=== PATIENT | female | born 1935 | race Caucasian/White ===

== ENCOUNTER → 2017-08-19 10:01 | Outpatient (CLI) | payer MEDICARE, SELFPAY ==
[2017-08-19 12:09] LABS: AST(SGOT) 23 U/L (15-37); Alanine Aminotransfer ALT/SGPT 25 U/L (13-56); Albumin, Serum 3.9 g/dL (3.2-5.0); Alkaline Phosphatase 80 U/L (45-117); Bilirubin, Direct 0.14 mg/dL (0.00-0.30); Cholesterol 132 mg/dL (200); Globulin 3.3 g/dL (2.2-4.2); High Density Lipoprotein 49 mg/dL; Protein, Total 7.2 g/dL (6.4-8.2); Thyroid Stim Hormone (TSH) 3.43 uIU/mL (0.358-3.74); Triglycerides 81 mg/dL; Very Low Density Lipoprotein 16 mg/dL (5-40)
== END ==
PROVIDERS: Family Provider Internal Medicine; PCP Internal Medicine; Visit Provider Internal Medicine Cardiovascular Disease
DX: E78.00 Pure hypercholesterolemia, unspecified (principal); E03.9 Hypothyroidism, unspecified
CPT/HCPCS: 36415; 80061; 80076; 84443

== ENCOUNTER 2017-12-15 18:39 | Emergency (ER) | payer MEDICARE, SELFPAY ==
[2017-12-15 18:42] VITALS: BP 151/102; PULSE 87; RESP 18; TEMP 37.1; O2SAT 95; BMI 29.7
[2017-12-15] MEDS: Oxymetazoline 0.05% 1 SPRAY SPRAY.BTL 2 SPRAY NASAL (19:30)
[2017-12-15 19:42] LABS: Hematocrit 39.8 % (37-47); Hemoglobin 12.8 g/dl (12.0-15.0); Mean Corp Hgb Conc 32.2 g/gl (32-36); Mean Corpuscular Hgb 31.5 pg (27.0-32.0); Mean Platelet Vol. 10.8 fl (6.2-12.0); Platelet Count 221 K/mm3 (150-450); RBC Distribution Width CV 13.3 % (11.6-14.6); RBC Distribution Width SD 47.9 fl (35.1-43.9); Red Blood Count 4.06 M/mm3 (4.2-5.4); White Blood Count 4.5 K/mm3 (4.4-11.0)
[2017-12-15 19:44] LABS: Scan Indicated on CBC? Y/N NO
[2017-12-15 19:49] LABS: International Normalized Ratio 2.6; Prothrombin Time (Protime)PT. 28.3 SECONDS (11.7-14.9)
[2017-12-15 20:47] VITALS: BP 164/69; PULSE 69; RESP 18; O2SAT 95
--- NOTE | 2017-12-15 22:11 | ED.DCSUM_ITS ---
- ER Visit Summary Date of Service: 12/15/17 Chief Complaint: Right sided nosebleed History of Present Illness: The patient is a 82 F patient had sudden onset of right-sided nosebleed about 1750 this evening. She is on warfarin. Denies any other bleeding. Says she gets these from time to time but has not had one recently. Denies any nasal trauma. Physical Examination: Well-appearing older female. Bleeding from her right naris. Dried blood on the left. Blood in the posterior pharynx. No significant clots. Appears to be an obvious anterior source. Neck nontender. Lungs are clear. Heart regular rate and rhythm. Abdomen soft nontender. Moving all 4 extremities. Neurologically awake and alert. Test Results: PT/INR 22.6. CBC normal. Normal platelets and H&H. Emergency Department Course and Treatment: Patient's clear the clots from her nose by blowing. There are minimal. Multiple Zachary-Synephrine Afrin soaked cotton balls were placed in both nares. When the bleeding slowed. I placed an anterior nasal tampon coated with bacitracin antibiotic ointment in the right side of her nose. Currently she has had no further bleeding. She will be ambulated. As long she has no further bleeding to be dressed she will be discharged to home. Treatment Plan: Nasal pack to be pulled out in 3 days. Amoxicillin 3 times daily. Follow-up with ENT on Monday. Disposition: Discharge Impression: Acute right anterior epistaxis Anticoagulated on Coumadin with an INR 2.6 Anterior nasal pack by ER physician This note was generated with [employer] dictation software. It may contain incorrect words, spelling, and punctuation that were not noted in review of the chart prior to signing ED Disposition - Plan for ED Patient: Chief Complaint: Nosebleed Referrals: Ugo Lauren MD [Primary Care Provider] -
--- NOTE | 2017-12-15 22:11 | ED.DEP ---
ED Disposition - Plan for ED Patient: Disposition: Home or Assisted Living Chief Complaint: Nosebleed Instructions: Nosebleed Prescriptions: Amoxicillin 250 mg PO TID #9 cap Referrals: Kobe Reyes MD [STAFF PHYSICIAN] - 3-5 Days Additional Instructions: Slowly and gently pull the packing out on Monday or even better go to Dr. Kobe Conteh's office of the ear nose and throat have them remove it on Monday and make an address any further bleeding as needed. Amoxicillin 1 pill 3 times a day till gone. If rebleeds and unable to stop return to the ER.
[2017-12-15 22:17] VITALS: BP 198/95; PULSE 72; RESP 18; O2SAT 95
== END 2017-12-15 22:31 | disposition home or self-care (01) ==
PROVIDERS: Emergency Provider Emergency Medicine; Family Provider Internal Medicine; PCP Internal Medicine
DX: R04.0 Epistaxis (principal); Z79.01 Long term (current) use of anticoagulants; I10 Essential (primary) hypertension; I48.91 Unspecified atrial fibrillation; Z86.73 Personal history of transient ischemic attack (TIA), and cerebral infarction without residual deficits; Z87.19 Personal history of other diseases of the digestive system; Z79.899 Other long term (current) drug therapy
CPT/HCPCS: 30901; 85027; 85610; 99285; A4216

== ENCOUNTER 2018-01-13 00:03 | Emergency (ER) | payer MEDICARE, SELFPAY ==
[2018-01-13 00:04] VITALS: BP 156/86; PULSE 70; RESP 16; TEMP 36.5; O2SAT 96; BMI 33.9
[2018-01-13 00:52] LABS: Absolute Lymphocyte Count 1.19 X10^3/ul (0.83-4.51); Absolute Neutrophil Count 4.6 X10^3/uL (2.0-7.7); Basophil# 0.03 X10^3/uL; Basophil% 0.5 % (0-1); Eosinophil# 0.16 X10^3/uL; Eosinophils% 2.5 % (0-5); Hematocrit 34.9 % (37-47); Hemoglobin 10.9 g/dl (12.0-15.0); Lymphocyte # 1.19 X10^3/ul (4.0); Lymphocyte % 18.8 % (19-41); Mean Corp Hgb Conc 31.2 g/gl (32-36); Mean Corpuscular Hgb 31.1 pg (27.0-32.0); Mean Corpuscular Volume 99.4 fL (81-99); Mean Platelet Vol. 10.6 fl (6.2-12.0); Monocyte# 0.36 X10^3/uL; Monocyte% 5.7 % (0-10); Neutrophil # 4.58 X10^3/uL (2.7-7.7); Neutrophil % 72.5 % (47-70); Platelet Count 235 K/mm3 (150-450); RBC Distribution Width SD 47.2 fl (35.1-43.9); Red Blood Count 3.51 M/mm3 (4.2-5.4); White Blood Count 6.3 K/mm3 (4.4-11.0)
[2018-01-13 00:53] LABS: POSITIVE COUNT NO; POSITIVE DIFFERENTIAL NO; POSITIVE MORPHOLOGY NO
[2018-01-13 00:56] LABS: International Normalized Ratio 2.5
[2018-01-13] MEDS: Oxymetazoline 0.05% 1 SPRAY SPRAY.BTL NASAL (00:58)
--- NOTE | 2018-01-13 02:10 | ED.VISSUMM ---
- ER Visit Summary Date of Service: 01/13/18 Chief Complaint: [nose bleed] History of Present Illness: The patient is a 82 F [that presents with spontaneous nosebleed from her right nares. She takes Coumadin for history of atrial fibrillation and has had nosebleeds in the past. No trauma. No difficulty breathing. She has no other complaints.] Physical Examination: [General: The patient appears well and in no apparent distress. Patient is resting comfortably on cart. Skin: Warm, dry, no pallor noted. No rash. Head: Normocephalic, atraumatic Neck: Supple, nontender. ENT: Moist mucus membranes, pharynx within normal limits - old blood, no active bleeding. Airway patent. Blood in R nares, L nares clear. Cardiovascular: Regular Rate and Rhythm, no gallups or rubs Respiratory: Patient is in no distress, no accessory muscle use, lungs are clear to auscultation, no wheezing, rales or rhonchi Musculoskeletal: normal ROM, no deformity, no tenderness, no swelling. 2+ radial and DP pulses symmetric. GI: No tenderness to palpation, no masses appreciated. No rebound, guarding, or rigidity noted. Neurological: A&O, normal strength and sensation. GCS 15. Psychiatric: Cooperative] Test Results: [INR 2.5. Hemoglobin 10.9.] Emergency Department Course and Treatment: [Clots were cleared from the right naris. Afrin soaked cotton ball was placed in the right naris with pressure held. Patient was observed. Packing was removed a short time later and the bleeding did again start. Nasal packing placement was discussed and patient consents for this procedure. 5.5 cm anterior rhino rocket placed in the right naris without difficulty. Patient was again observed and there is no active bleeding. No blood in the posterior pharynx. Patient appears in no respiratory distress. Patient will follow up with her ENT physician first thing Monday and she will be placed on a 3 day course of amoxicillin. She was instructed to return with any new or worsening symptoms. Patient and family understand and are agreeable with this plan of care. Patient was discharged home in stable condition.] Treatment Plan: [see above] Disposition: [Discharge home, stable and improved] Impression: [Epistaxis, nasal packing placed by ED physician] This note was generated with [employer] software. It may contain incorrect words, spelling, and punctuation that were not noted in review of the chart prior to signing ED Disposition - Plan for ED Patient: Disposition: Home or Assisted Living Chief Complaint: Nosebleed Instructions: Nosebleed Prescriptions: Amoxicillin 500 mg PO BID #6 tab Referrals: Kobe Reyes MD [STAFF PHYSICIAN] -
[2018-01-13 02:21] VITALS: BP 136/76; PULSE 78; RESP 16; O2SAT 98
== END 2018-01-13 02:22 | disposition home or self-care (01) ==
PROVIDERS: Emergency Provider Emergency Medicine; Family Provider Internal Medicine; PCP Internal Medicine
DX: R04.0 Epistaxis (principal); I48.91 Unspecified atrial fibrillation; Z79.01 Long term (current) use of anticoagulants
CPT/HCPCS: 30901; 85025; 85610; 99282

== ENCOUNTER → 2018-02-23 12:59 | Outpatient (CLI) | payer MEDICARE, SELFPAY ==
--- NOTE | 2018-02-23 13:01 | ECHOD_ITS ---
Reason For Study: ATRIAL FIB-FLUTTER Procedure This was a 2D Doppler, Color Flow transthoracic echocardiogram. Exam performed in department. Left Ventricle Normal LV size. Mild concentric left ventricular hypertrophy. Left ventricular systolic function is normal. The estimated ejection fraction is 60 %. Unable to assess diastolic dysfunction due to arrhythmia. No regional wall motion abnormalities noted. Right Ventricle Normal RV size. Normal systolic function. Atria The left atrium is severely enlarged. The right atrium is moderately enlarged. Mitral Valve Normal mitral valve. Trivial eccentric mitral valve insufficiency. Tricuspid Valve Normal tricuspid valve. Moderate (2+) tricuspid valve insufficiency. Pulmonary artery systolic pressure is 47 mmHg. Aortic Valve Normal aortic valve. Trisinus/trileaflet aortic valve. Pulmonic Valve Normal pulmonic valve. Mild (1+) pulmonic valve insufficiency. Great Vessels Normal aortic root. The pulmonary artery is normal size. Normal inferior vena cava. Pericardium/Pleural No pericardial effusion. MMode/2D Measurements & Calculations LVIDd: 4.6 cm IVSd: 1.2 cm Ao root diam: 3.3 cm LVIDs: 3.0 cm LVPWd: 1.3 cm LA dimension: 5.4 cm RVDd: 3.7 cm FS: 35.2 % LAV(MOD-bp): 192.7 ml LVAd ap4: 22.0 cm2 SV(MOD-sp4): 40.9 ml LAV(MOD-bp) Indexed: 98.5 ml/m2 EDV(MOD-sp4): 69.9 ml LAV(MOD-sp2): 186.9 ml EDV(sp4-el): 71.2 ml LAV(MOD-sp4): 195.5 ml LVAs ap4: 13.2 cm2 ESV(MOD-sp4): 29.0 ml ESV(sp4-el): 29.1 ml EF(MOD-sp4): 58.5 % EF(sp4-el): 59.2 % SV(sp4-el): 42.1 ml LA A4 area: 46.2 cm2 RA A4 area: 39.6 cm2 Doppler Measurements & Calculations MV E max yamileth: 138.9 cm/sec Ao V2 max: 105.7 cm/sec LV V1 max: 77.5 cm/sec Ao max P.5 mmHg LV V1 max P.4 mmHg PA V2 max: 85.2 cm/sec TR max yamileth: 326.4 cm/sec TR max P.6 mmHg Interpretation Summary Normal LV size. Mild concentric left ventricular hypertrophy. Left ventricular systolic function is normal. The estimated ejection fraction is 60 %. Unable to assess diastolic dysfunction due to arrhythmia. The left atrium is severely enlarged. The right atrium is moderately enlarged. Ordering Physician: Gideon Chatman Referring Physician: BUBBA VILLANUEVA Performed By: Cheryl Storey RDCS
== END ==
PROVIDERS: Family Provider Internal Medicine; PCP Internal Medicine; Referring Provider Internal Medicine Cardiovascular Disease; Visit Provider Internal Medicine Cardiovascular Disease
DX: I48.91 Unspecified atrial fibrillation (principal); I48.92 Unspecified atrial flutter; I51.7 Cardiomegaly
CPT/HCPCS: 93306

== ENCOUNTER → 2018-09-06 10:19 | Outpatient (CLI) | payer MEDICARE, SELFPAY ==
[2018-08-31 13:45] VITALS: BMI 29.9
[2018-09-06 10:55] LABS: Absolute Lymphocyte Count 0.84 X10^3/ul (0.83-4.51); Absolute Neutrophil Count 2.4 X10^3/uL (2.0-7.7); Basophil# 0.02 X10^3/uL; Basophil% 0.5 % (0-1); Eosinophil# 0.23 X10^3/uL; Hematocrit 34.4 % (37-47); Hemoglobin 10.3 g/dl (12.0-15.0); Lymphocyte # 0.84 X10^3/ul (4.0); Lymphocyte % 21.8 % (19-41); Mean Corp Hgb Conc 29.9 g/gl (32-36); Mean Corpuscular Volume 86.9 fL (81-99); Mean Platelet Vol. 10.2 fl (6.2-12.0); Monocyte# 0.33 X10^3/uL; Monocyte% 8.5 % (0-10); Neutrophil # 2.44 X10^3/uL (2.7-7.7); Neutrophil % 63.2 % (47-70); Platelet Count 300 K/mm3 (150-450); RBC Distribution Width CV 16.8 % (11.6-14.6); RBC Distribution Width SD 53.5 fl (35.1-43.9); Red Blood Count 3.96 M/mm3 (4.2-5.4); White Blood Count 3.9 K/mm3 (4.4-11.0)
[2018-09-06 11:00] LABS: POSITIVE COUNT NO; POSITIVE DIFFERENTIAL NO; POSITIVE MORPHOLOGY NO
[2018-09-06 11:22] LABS: AST(SGOT) 23 U/L (15-37); Alanine Aminotransfer ALT/SGPT 20 U/L (13-56); Albumin, Serum 3.8 g/dL (3.2-5.0); Alkaline Phosphatase 82 U/L (45-117); Globulin 3.4 g/dL (2.2-4.2); Protein, Total 7.2 g/dL (6.4-8.2)
[2018-09-06 11:23] LABS: Bilirubin, Direct 0.11 mg/dL (0.00-0.30); Cholesterol 130 mg/dL (200); High Density Lipoprotein 43 mg/dL; Triglycerides 109 mg/dL; Very Low Density Lipoprotein 22 mg/dL (5-40)
[2018-09-06 11:29] LABS: Anion Gap 8 (5-15); BUN 22 mg/dL (7-18); BUN/Creat Ratio 22.2 RATIO (10-20); Calcium,Total 9.5 mg/dL (8.5-10.1); Chloride 107 mmol/L (98-107); Creatinine, Serum 0.99 mg/dL (0.55-1.02); EST Glomerular Filtration Rate 57 mL/min (>60); Est Glom Filt Rate - Afr Amer 69 mL/min (>60); Glucose 88 mg/dL (74-106); Potassium 4.3 mmol/L (3.5-5.1); Sodium Level 140 mmol/L (136-145); T4 Free Direct 1.23 ng/dL (0.76-1.46); Thyroid Stim Hormone (TSH) 2.39 uIU/mL (0.358-3.74)
== END ==
PROVIDERS: Internal Medicine Cardiovascular Disease; Family Provider Internal Medicine; PCP Internal Medicine; Referring Provider Internal Medicine; Visit Provider Internal Medicine
DX: I10 Essential (primary) hypertension (principal); I48.91 Unspecified atrial fibrillation; E78.5 Hyperlipidemia, unspecified; E03.9 Hypothyroidism, unspecified; Z79.899 Other long term (current) drug therapy
CPT/HCPCS: 36415; 80048; 80061; 80076; 84439; 84443; 85025

== ENCOUNTER 2019-07-19 15:35 | Emergency (ER) | payer MEDICARE, SELFPAY ==
[2019-06-21 13:52] VITALS: BMI 29.6
[2019-07-19] VITALS (8 sets, daily range): BP systolic 152–194; BP diastolic 75–103; PULSE 70–81; RESP 13–21; TEMP 36.1; O2SAT 95–97; BMI 30.9
--- NOTE | 2019-07-19 15:48 | CT_ITS ---
We are attempting to reach an attending provider to discuss findings. An addendum with communication details will be sent when the communication is complete. STUDY: CT BRAIN WITHOUT CONTRAST REASON FOR EXAM: Female, 84 years old. FALL 1 WEEK AGO, ON THINNERS RADIATION DOSAGE (If Supplied By Facility): CTDIvol = ( 44.99 ) mGy, DLP = ( 812.98 ) mGycm TECHNIQUE: Transaxial CT imaging of the brain was performed without administration of intravenous contrast material. Individualized dose optimization techniques were used for this CT. COMPARISON: No relevant priors. FINDINGS: There is a hematoma adjacent to the left maxillary sinus. No evidence for acute fracture.. 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 There is a large predominantly subacute/acute subdural hematoma approximately 2.2 cm in width with diffuse effacement of cortical sulci in the left cerebral hemisphere and mass effect as well as midline displacement of the left lateral ventricle with approximately 1.4 cm displacement. Normal visualized paranasal sinuses. CT/Brain/Head without Contrast IMPRESSION: Large subacute/acute subdural hematoma in the left cerebral hemisphere with approximately 1.4 cm midline shift displacement of the left lateral ventricle Electronically Signed: Rigo Jernigan MD at 17:18 EST , Service support ,
--- NOTE | 2019-07-19 15:50 | EKG12_ITS ---
Test Reason : FALL Blood Pressure : / mmHG Vent. Rate : 075 BPM Atrial Rate : 120 BPM P-R Int : 000 ms QRS Dur : 090 ms QT Int : 420 ms P-R-T Axes : 000 -46 091 degrees QTc Int : 469 ms Atrial fibrillation Left axis deviation Nonspecific ST and T wave abnormality Abnormal ECG Confirmed by ADRI HUNTER, NELIDA ([id number]), editorial cartoonist SUDHAKAR URBANO ([id number]) on 07/22/2019 2:08:02 PM Referred By: MATTIE PILLAI Confirmed By:RAMONA RUSH MD
[2019-07-19 16:00] LABS: Absolute Lymphocyte Count 0.95 X10^3/uL (0.83-4.51); Absolute Neutrophil Count 5.1 X10^3/uL (2.0-7.7); Basophil# 0.05 X10^3/uL; Basophil% 0.7 % (0-1); Eosinophil# 0.11 X10^3/uL; Eosinophils% 1.6 % (0-5); Hematocrit 38.5 % (37-47); Hemoglobin 12.4 g/dL (12.0-15.0); Lymphocyte # 0.95 X10^3/ul (4.0); Lymphocyte % 14.1 % (19-41); Mean Corp Hgb Conc 32.2 g/dL (32-36); Mean Corpuscular Hgb 30.5 pg (27.0-32.0); Mean Corpuscular Volume 94.6 fL (81-99); Mean Platelet Vol. 10.7 fl (6.2-12.0); Monocyte# 0.51 X10^3/uL; Monocyte% 7.6 % (0-10); NRBC Flagged by Analyzer 0 % (0-5); Neutrophil # 5.06 X10^3/uL (2.7-7.7); Neutrophil % 75.4 % (47-70); Platelet Count 284 K/mm3 (150-450); RBC Distribution Width CV 14.3 % (11.6-14.6); RBC Distribution Width SD 49.4 fl (35.1-43.9); Red Blood Count 4.07 M/mm3 (4.2-5.4); White Blood Count 6.7 K/mm3 (4.4-11.0)
[2019-07-19 16:17] LABS: International Normalized Ratio 1.6; Prothrombin Time (Protime)PT. 18.8 SECONDS (11.7-14.9)
[2019-07-19 16:18] LABS: Partial Thromboplast Time 29.9 Seconds (24.1-36.2)
[2019-07-19] MEDS: 0.9% Normal Saline 1,000 ML 150 ML IV (16:32)
[2019-07-19 16:35] LABS: Lactic Acid 1.3 mmol/L (0.4-1.9)
[2019-07-19 16:39] LABS: ALB/GLOB Ratio 1.1 RATIO (0.9-2.4); AST(SGOT) 16 U/L (15-37); Alanine Aminotransfer ALT/SGPT 15 U/L (13-56); Albumin, Serum 3.7 g/dL (3.2-5.0); Alkaline Phosphatase 92 U/L (45-117); Anion Gap 5 (5-15); BUN 15 mg/dL (7-18); BUN/Creat Ratio 13.3 RATIO (10-20); Calcium,Total 10.2 mg/dL (8.5-10.1); Chloride 106 mmol/L (98-107); Creatinine, Serum 1.13 mg/dL (0.55-1.02); EST Glomerular Filtration Rate 49 mL/min (>60); Est Glom Filt Rate - Afr Amer 59 mL/min (>60); Estimated Creatinine Clearance 38.05 ml/min; Globulin 3.5 g/dL (2.2-4.2); Glucose 100 mg/dL (74-106); Potassium 4.2 mmol/L (3.5-5.1); Protein, Total 7.2 g/dL (6.4-8.2); Sodium Level 138 mmol/L (136-145)
--- NOTE | 2019-07-19 16:45 | RAD_ITS ---
STUDY: X-RAY CHEST REASON FOR EXAM: Female, 84 years old. mental status change, also recent fall TECHNIQUE: PA and lateral COMPARISON: None. FINDINGS: There is very mild prominence of interstitial markings in the lower lobes.. There is no demonstrated pleural abnormality. Heart is enlarged and slightly globular in configuration. Possibility of pericardial effusion not excluded. Normal mediastinum and ebenezer. Normal visualized pulmonary arteries. Tortuous mildly calcified aortic arch and descending thoracic aorta. Normal visualized thoracic spine. Normal visualized ribs, clavicles, and shoulders. There is no demonstrated abnormality of the visualized soft tissue structures of the upper abdomen. RAD/Chest PA and Lateral IMPRESSION: ASHD. Cannot definitively exclude pericardial effusion Mild interstitial thickening in the lower lobes Electronically Signed: Rigo Jernigan MD at 17:27 EST , Service support ,
[2019-07-19 16:48] LABS: Bacteria 0 SEEN /hpf (None Seen); Mucous, Urine 0 SEEN /hpf (<or=2+); White Blood Cells 0 SEEN /hpf (0-5)
[2019-07-19 17:00] LABS: Color, Urine Yellow (Yellow); Glucose, Dipstick Normal (Normal); Ketone-Dipstick 5 mg/dl (Negative); Leukocyte Esterase-Dipstick Negative /ul (Negative); Nitrite-Dipstick Negative (Negative); Occult Blood-Urine 250 /ul (Negative); Protein-Dipstick 30 mg/dl (Negative); Urine Bilirubin Dipstick Negative (Negative); Urine Clarity Clear (Clear); Urine Urobilinogen Normal (Normal); Urine pH 6.5 (5.0 - 8.0)
--- NOTE | 2019-07-19 17:18 | NURSING ---
Per physician, d/t duration of condition, Q15 VS and NIH not appropriate at this time
[2019-07-19 17:21] LABS: Red Blood Cells-Urine 5-10 SEEN /hpf (0-5); Squamous Epithelial Cells - UA 0-5 SEEN /hpf (5-10)
--- NOTE | 2019-07-19 17:39 | ED.DCSUM_ITS ---
- ER Visit Summary Date of Service: 07/19/19 Chief Complaint: Confusion History of Present Illness: The patient is a [address] Lauren. She is on Coumadin for atrial fibrillation. She lives at home with family. They report that she fell on July 04. She was doing fine until 2 days ago when she became confused. The patient denies any complaints. However, at this time she is oriented x2. Physical Examination: Vitals: Stable. Afebrile. General: Well-nourished and well-developed. Head: Normocephalic old appearing contusion to the left maxilla. Neck: Supple, no lymphadenopathy. No JVD. Nontender. Cardiovascular: Regular rate and rhythm. No murmurs. Respiratory: No respiratory distress. Clear to auscultation bilaterally. Abdominal: Soft, nontender, nondistended, normal bowel sounds. No guarding, rebound, or peritoneal signs. Back: Nontender. Extremities: Nontender, no edema. Contusion to the proximal left humerus. No pain with range of motion. Skin: Normal color, no rash. Neurologic: Alert and oriented ?2. Cranial nerves II through XII are intact. Normal strength and sensation. Obvious expressive aphasia. Psych: Normal affect. Test Results: INR is 1.6 the PTT is 29.9. Chem-7 shows a creatinine 1.13 and calcium of 10.2. CBC shows segmented for 74 lymphocytes 14. UA is negative. Troponin is negative. Clinical Impression(s) from Imaging Studies Brain CT 07/19/19 15:48 IMPRESSION: Large subacute/acute subdural hematoma in the left cerebral hemisphere with approximately 1.4 cm midline shift displacement of the left lateral ventricle Electronically Signed: Rigo Jernigan MD at 17:18 EST , Service support , ADDENDUM: 07/19/19 4448 IMPRESSION: Large subacute/acute subdural hematoma in the left cerebral hemisphere with approximately 1.4 cm midline shift displacement of the left lateral ventricle N.B. : The above information has been verbally conveyed by Rigo Jernigan MD to Jesus Callejas MD, on 07/19/2019 17:21:29 (ET). Electronically Signed: Rigo Jernigan MD at 17:18 EST , Service support , Chest X-Ray 07/19/19 16:45 IMPRESSION: ASHD. Cannot definitively exclude pericardial effusion Mild interstitial thickening in the lower lobes Electronically Signed: Rigo Jernigan MD at 17:27 EST , Service support , Emergency Department Course and Treatment: Patient was given a dose of vitamin K IV. Her INR is 1.6 which is below the threshold for giving Kcentra by protocol at this hospital. Her systolic blood pressure has been in the 150s to 160s. This was not treated as I feel that she needs this to be able to perfuse when she clearly has increased intercranial pressure. She has remained stable and her neurologic exam is unchanged while here. Treatment Plan: The patient was discussed with Dr. Cruz at [facility]. We discussed her blood pressure and her INR. She will be transferred there for further evaluation and treatment. Disposition: Transferred in serious condition. Impression: 1. Subdural hemorrhage on left. 2. Coumadin coagulopathy. 3. Atrial fibrillation. 4. Critical care time 33 minutes. 5. Cardiomegaly. This note was generated with [employer] dictation software. It may contain incorrect words, spelling, and punctuation that were not noted in review of the chart prior to signing ED Disposition - Plan for ED Patient: Referrals: Ugo Lauren MD [Primary Care Provider] -
--- NOTE | 2019-07-19 18:41 | NURSING ---
Report called to Salud HERRING at [facility]
[2019-07-19] MEDS: Morphine 4 MG/ML Syringe IV (18:55)
== END 2019-07-19 20:15 | disposition short-term general hospital (02) ==
PROVIDERS: Emergency Provider Emergency Medicine; PCP Internal Medicine
DX: S06.5X9A Traumatic subdural hemorrhage with loss of consciousness of unspecified duration, initial encounter (principal); R79.1 Abnormal coagulation profile; I48.91 Unspecified atrial fibrillation; I11.9 Hypertensive heart disease without heart failure; S40.022A Contusion of left upper arm, initial encounter; S00.83XA Contusion of other part of head, initial encounter; W19.XXXA Unspecified fall, initial encounter; Y93.9 Activity, unspecified; Y92.9 Unspecified place or not applicable; E03.9 Hypothyroidism, unspecified; I27.20 Pulmonary hypertension, unspecified; M19.90 Unspecified osteoarthritis, unspecified site; Z86.73 Personal history of transient ischemic attack (TIA), and cerebral infarction without residual deficits; Z79.01 Long term (current) use of anticoagulants; Z79.899 Other long term (current) drug therapy
CPT/HCPCS: 70450; 71046; 80053; 81001; 83605; 84484; 85025; 85610; 85730; 87040; 87086; 93005; 96361; 96365; 96374; 96375; 99285; A4216; J3490

== ENCOUNTER 2019-08-01 14:14 | Inpatient (IN) | payer MEDICARE, SELFPAY ==
[2019-07-19 15:36] VITALS: BMI 30.9
[2019-08-01 14:27] VITALS: BMI 30.6
[2019-08-01 14:31] VITALS: BP 159/90; PULSE 102; RESP 16; TEMP 36.7; O2SAT 95
[2019-08-01 14:46] VITALS: BMI 30.6
[2019-08-01 15:39] VITALS: PULSE 102; RESP 16; O2SAT 95
--- NOTE | 2019-08-01 17:13 | PCM.NTREPORT ---
Nutrition Therapy Report - History Nutrition Services has been consulted to:: Manage enteral nutrition Current diet / nutrition support order:: regular-puree/nectar thick. NG in place for nutrition support. - Anthropometric Measurements Height:: 5 ft 7 in Weight:: 88.677 kg Body Mass Index (BMI):: 30.6 - Assessment Food / Nutrition-Related History:: Review of records from [facility]- corpak placed for nutrition support. Unclear when corpak was placed. Orders for Replete at 65mL/hour for 22 hours/day w/ 50mL flush 6x/day to provide 1430 calories, 91 g protein, and 1610mL total fluid per day. Per [facility] RD documentation, PO diet was advanced at [facility] w/ anticipation that corpak would be removed soon. It appears that res was offered mighty shakes or magic cups w/meals. Res unable to provide much information at time of assessment. Per [facility] records, wt on 07/19/19 was 96.6 kg, suggesting a 8.2% wt loss over < 2 weeks. Difficulties chewing/swallowing reported- PRODUCT SAFETY MANAGER consulted. On puree/nectar thick diet at [facility] per report. PO diet ordered currently. - Nutrition Intervention Nutrition Prescription:: 4543-7361 calories/day, 78-88 g protein/day - Food / Nutrient Delivery Interventions Summary of nutrition intervention:: Spoke w/ Res- she believes she can eat well at meals w/o continuing enteral nutrition support. Spoke w/ NEVAEH Frye- plan of care is to continue w/ NG and enteral support as needed. Will order bolus enteral feeds if pt eats less than 50% at meals. PRODUCT SAFETY MANAGER assessment pending. Nutrition support ordered as / adjusted to:: bolus feeds of 355mL Jevity 1.5 via NG after mealtimes if PO intake <50%. 50mL H2O flush before and after each bolus. Nutrition education provided?: No - MNT Monitoring Further MNT monitoring and evaluation required?: Yes MNT Follow-up in:: 7-9 days - call clinical RD at [phone] w/ questions/concerns
[2019-08-01 17:18] VITALS: BMI 30.6
--- NOTE | 2019-08-01 18:01 | NURSING ---
Addendum entered by Kristie Andrade 08/02/19 08:00: Daughter updated on situation. Daughter stating she will be discussing with her siblings about code status and will update staff. Per GAVINO Quiroga they do not want pt to be a full code but unsure which DNR status. All questions were answered. Daughter thanked this nurse several times for all of the care that has been provided to her mom. Stating she will call back in later to get an update. Dr. Vieira updated on situation and conversation with daughter. [facility]. Addendum entered by Melva Blanco 08/01/19 18:48: pt assisted via bed to xray, pt noted to be responding more. ABle to answer questions with short one word answers. daughter states that pt has history of seizures and feels that may have been one. phone call to [facility] for preauth on CT scan. Awaiting fax from them. Original Note: Nursing staff entered room and noted daughter feeding pt. Pt noted to have food rolling out of mouth and less responsive, aphasic. pt not responding to questions. pt speech was clear earlier and answering questions appropriately, was able to follow directions. Dr Vieira here and assessed pt. new orders for labs, chest & ABD xray, CT brain, Resp panel, blood cultures, & UA. Daughter states that her mom was not acting this way earlier.
--- NOTE | 2019-08-01 18:10 | RAD_ITS ---
STUDY: X-RAY - ABDOMEN/PELVIS REASON FOR EXAM: Female, 84 years old. NEW ADMIT, PT IS POST OP SUBDURAL HEMATOMA EVACUATION TECHNIQUE: Two AP supine views of the abdomen and pelvis. COMPARISON: None. FINDINGS: The heart is enlarged. Minor crowding suggested in the right lung base. Distal feeding tube projects in the post bulbar 1st-2nd portion of the duodenum. There is an unremarkable bowel gas pattern. Contrast from prior studies mixed with stool in the rectal vault. There is no demonstrated free abdominal air. The visualized liver, spleen and kidneys are grossly normal in size and morphology. There are calcified phleboliths in the pelvis. There are degenerative changes of the lower lumbar spine. RAD/Abdomen Single View IMPRESSION: 1. Feeding tube tip projects in the post bulbar 1st-2nd portion of the duodenum. 2. Nonspecific bowel gas pattern. 3. The heart is enlarged. Electronically Signed: Solis Garza MD at 18:43 EST , Service support ,
--- NOTE | 2019-08-01 18:10 | RAD_ITS ---
STUDY: X-RAY CHEST REASON FOR EXAM: Female, 84 years old. NEW TRANSFER -- HX OF SUBDURAL HEMATOMA WITH EVACUATION, PT IS BEDRIDDEN TECHNIQUE: Upright AP and lateral views of the chest on 3 films. COMPARISON: Upright AP and lateral chest x-ray July 19, 2019. FINDINGS: A feeding tube passes beneath the diaphragm, its tip outside the field of view. The lungs are incompletely expanded and there is local volume loss with crowding in the lung bases. No acute consolidation. There is no demonstrated pleural abnormality. There is stable mild cardiac enlargement. Normal mediastinum and ebenezer. Normal visualized pulmonary arteries. There is stable mild atherosclerotic calcification of the aortic arch. Normal visualized thoracic spine. Normal visualized ribs, clavicles, and shoulders. There is no demonstrated abnormality of the visualized soft tissue structures of the upper abdomen. RAD/Chest PA and Lateral IMPRESSION: 1. Stable cardiac enlargement. No CHF. 2. Suboptimal inspiratory effort with bibasilar crowding. 3. Feeding tube tip is outside the field of view. Electronically Signed: Solis Garza MD at 18:41 EST , Service support ,
[2019-08-01 18:28] LABS: Bacteria 0 SEEN /hpf (None Seen); Mucous, Urine 0 SEEN /hpf (<or=2+); Red Blood Cells-Urine 0 SEEN /hpf (0-5); White Blood Cells 0 SEEN /hpf (0-5)
[2019-08-01 18:30] LABS: Color, Urine Yellow (Yellow); Glucose, Dipstick Normal (Normal); Ketone-Dipstick Negative (Negative); Nitrite-Dipstick Negative (Negative); Occult Blood-Urine Negative /ul (Negative); Protein-Dipstick Negative (Negative); Specific Gravity, Urine 1.015 (1.002-1.030); Urine Bilirubin Dipstick Negative (Negative); Urine Clarity Clear (Clear); Urine Urobilinogen Normal (Normal)
[2019-08-01 18:31] LABS: Leukocyte Esterase-Dipstick Negative /ul (Negative)
[2019-08-01 18:40] LABS: Squamous Epithelial Cells - UA 0-5 SEEN /hpf (5-10)
[2019-08-01 18:41] LABS: Amorphous Sediment 1+
[2019-08-01 18:57] LABS: Absolute Lymphocyte Count 1.02 X10^3/uL (0.83-4.51); Absolute Neutrophil Count 4.1 X10^3/uL (2.0-7.7); Basophil# 0.06 X10^3/uL; Eosinophil# 0.34 X10^3/uL; Eosinophils% 5.6 % (0-5); Hematocrit 35.5 % (37-47); Hemoglobin 11.2 g/dL (12.0-15.0); Lymphocyte # 1.02 X10^3/ul (4.0); Lymphocyte % 16.7 % (19-41); Mean Corp Hgb Conc 31.5 g/dL (32-36); Mean Corpuscular Hgb 30.2 pg (27.0-32.0); Mean Corpuscular Volume 95.7 fL (81-99); Mean Platelet Vol. 11.4 fl (6.2-12.0); Monocyte# 0.56 X10^3/uL; Monocyte% 9.2 % (0-10); NRBC Flagged by Analyzer 0 % (0-5); Neutrophil % 67.2 % (47-70); Platelet Count 289 K/mm3 (150-450); RBC Distribution Width CV 15.4 % (11.6-14.6); RBC Distribution Width SD 53.6 fl (35.1-43.9); Red Blood Count 3.71 M/mm3 (4.2-5.4); White Blood Count 6.1 K/mm3 (4.4-11.0)
[2019-08-01 19:37] LABS: Anion Gap 4 (5-15); BUN 32 mg/dL (7-18); BUN/Creat Ratio 38.2 RATIO (10-20); Calcium,Total 9.9 mg/dL (8.5-10.1); Chloride 108 mmol/L (98-107); Creatinine, Serum 0.84 mg/dL (0.55-1.02); EST Glomerular Filtration Rate 69 mL/min (>60); Est Glom Filt Rate - Afr Amer 84 mL/min (>60); Estimated Creatinine Clearance 49.35 ml/min; Glucose 99 mg/dL (74-106); Potassium 4.4 mmol/L (3.5-5.1); Sodium Level 139 mmol/L (136-145)
--- NOTE | 2019-08-01 20:03 | NURSING ---
Addendum entered by Kristie Andrade 08/02/19 00:16: Correction fluids running at 60cc/hr. Pt awake at this time and more alert. Pt stated her name and who her daughter is. Pt able to follow simple commands of sticking tongue out, reaching over to help roll, follow finger in all directions. Pt agreeable to HS care. Able to lift Rt arm above head without problem. Slightly able to lift left arm but contracted d/t old CVA. Brace applied to left hand. Heel boots on. Rolled to Rt side. PA on. Bed in lowest position, seizure pads on, headed elevated at 30 degrees. Pt denied further needs at this time. Original Note: Dr. Vieira updated on CXR and KUB. Updated on pt not being verbal with responses. Able to nod head yes or no when asked a question. Able to follow pen light to the left but had to be redirected to follow other directions. Bp 155/67, HR 105, temp 98.7, O2 97% on RA. New order to give 1L NS bolus and then run at 75cc/hr.
[2019-08-01] MEDS: 0.9% Normal Saline 1,000 ML 999 ML IV (20:49)
[2019-08-01] MEDS: levETIRAcetam Oral Solution 500 MG/5 ML PO (21:06)
[2019-08-01] MEDS: Docusate Sodium 100 MG/10 ML UDC PO (21:06)
[2019-08-01] MEDS: Lisinopril 20 MG Tablet PO (21:07)
[2019-08-01] MEDS: Pravastatin 80 MG Tablet PO (21:08)
[2019-08-01] MEDS: Zonisamide 50 MG Capsule 100 MG PO (21:09)
[2019-08-01 21:10] VITALS: BP 155/67; PULSE 105; O2SAT 92
[2019-08-01] MEDS: Metoprolol Tartrate 100 MG Tablet PO (21:10)
[2019-08-01] MEDS: Jevity 1.5. 1,000 ML Bottle 355 ML NG (21:26)
--- NOTE | 2019-08-01 21:28 | PCM.HP.STD ---
Problem List (1) Debility Status: Acute (2) Fall Status: Acute (3) Subdural hemorrhage Status: Acute (4) Encephalopathy Status: Acute (5) Dysphagia Status: Acute (6) Left hemiparesis Status: Acute (7) Receptive aphasia Status: Chronic (8) Seizure disorder Status: Chronic (9) Atrial fibrillation Status: Chronic (10) Hypertension Status: Chronic (11) Chronic obstructive pulmonary disease Status: Chronic (12) Rheumatoid arthritis Status: Chronic (13) Bowel incontinence Status: Acute (14) Bladder incontinence Status: Acute (15) Anemia Status: Chronic (16) Atrophic vaginitis Status: Chronic (17) Overactive bladder Status: Chronic (18) CVA (cerebral vascular accident) Status: Chronic (19) Hypothyroidism Status: Chronic History of Present Illness Date of Admission: 08/01/19 Chief Complaint: Here for rehabilitation, strengthening, prior to disposition determination. The patient is a 84 year old Female with below past medical history with followin07/19/2019 Fall on ice, hit head, depressed mental status. CT head showed left frontal subdural hemorrhage. Transferred to [facility]. 07/20/2019 Left craniotomy evacuation for subdural hemorrhage. On Keppra 250MG daily for chronic seizure disorder at home. Anticoagulation held due to subdural hemorrhage. Corpak in place for tube feeding. Pureed diet with nectar thick liquids per modified barium swallow. 08/01/2019 Admit to TCU with debility, here for rehabilitation, strengthening, prior to discharge home. Resident had change in mental status after arrival, unresponsive, not responding to verbal commands, not speaking. Evaluation ordered. WBC 6.1, Hemoglobin 11.2, Hematocrit 35.5, Platelets 289. Sodium 139, Potassium 4.4, Chloride 108, Bicarb 27, BUN 32, Cr 0.89, Glucose 99. UA negative. Temperature 99.1, Respiratory panel ordered. Heart Rate 105, Respiratory rate 16, Blood pressure 155/67, Pulsox 95% on Room Air. Chest X-ray shows corpak in place, cardiomegaly, negative for pneumonia/CHF. KUB shows corpak in place, large ball of contrast and stool plug in rectum. Past Medical History Past Medical History (Chronic Problems): Chronic Problems (Last Reviewed 06/21/19 @ 14:[address] Gideon Chatman MD) Receptive aphasia (Chronic) Seizure disorder (Chronic) Atrial fibrillation (Chronic) Hypertension (Chronic) Chronic obstructive pulmonary disease (Chronic) Rheumatoid arthritis (Chronic) Anemia (Chronic) Atrophic vaginitis (Chronic) Overactive bladder (Chronic) Longstanding persistent atrial fibrillation (Chronic) Non-rheumatic tricuspid valve insufficiency (Chronic) Secondary pulmonary arterial hypertension (Chronic) Essential hypertension (Chronic) CVA (cerebral vascular accident) (Chronic 2009) Current use of exterminator termite anticoagulation (Chronic) Hypothyroidism (Chronic) Medical History: Medical History (Last Reviewed 06/21/19 @ 14:[address] Gideon Chatman MD) Longstanding persistent atrial fibrillation (Chronic) I48.11 Non-rheumatic tricuspid valve insufficiency (Chronic) I36.1 Secondary pulmonary arterial hypertension (Chronic) I27.21 Essential hypertension (Chronic) I10 CVA (cerebral vascular accident) (Chronic) Onset Date: 2008 I63.9 Hypothyroidism (Chronic) E03.9 Anemia D64.9 GI bleed K92.2 Hypothyroidism E03.9 Osteoarthritis M19.90 Allergies naproxen Adverse Reaction (Severe, Verified 06/21/19 13:53) GI BLeed ezetimibe [From Vytorin] Adverse Reaction (Intermediate, Verified 06/21/19 13:53) mylagias simvastatin [From Vytorin] Adverse Reaction (Intermediate, Verified 06/21/19 13:53) mylagias celebrex Allergy (Uncoded 06/21/19 13:53) GI Bleed Home Medications: Ambulatory Orders Medication Instructions Recorded Cholecalciferol (VIT D3) [Vitamin 1,000 unit PO DAILY 09/02/15 D] Magnesium Oxide [Mag-Ox 400] 800 mg PO DAILY 09/02/15 Levothyroxine Sodium 50 mcg PO DAILY 07/19/19 Lisinopril 20 mg PO BID 07/19/19 Oxybutynin Chloride [Oxybutynin 10 mg PO DAILY 07/19/19 Chloride ER] Pravastatin Sodium 80 mg PO QHS 07/19/19 Acetaminophen [Pain Reliever] 650 mg PO Q4H PRN PRN 08/01/19 Docusate Sodium [Docu Liquid] 100 mg PO BID 08/01/19 Metoprolol Tartrate [Lopressor 100 mg PO Q8H 08/01/19 (Beta Rosy)] Multivitamin [Daily Multiple 1 ea PO DAILY 08/01/19 Vitamin] Ondansetron HCl [Zofran] 4 mg PO Q4H PRN PRN 08/01/19 Pantoprazole Sodium [Protonix] 20 mg PO DAILY 08/01/19 Pravastatin [Pravachol] 80 mg PO QHS 08/01/19 Quetiapine Fumarate [Seroquel] 12.5 mg PO Q8H PRN PRN 08/01/19 Zonisamide [Zonegran] 100 mg PO QHS 08/01/19 levETIRAcetam oral solution 500 mg PO BID 08/01/19 [Keppra Solution] Surgical History: Surgical History (Last Reviewed 06/21/19 @ 14:[address] Gideon Chatman MD) History of bunionectomy of both great toes 2000 History of cystoscopy 2000 History of left heart catheterization Onset Date: 1998 Surgical History: - - Craniotomy, Vein Stripping, Bilateral bunionectomy. Psychiatric History: No pertinent psych hx [employer]CH[employer]IAN [employer] History: No pertinent TECH[employer] history Lives: Alone Smoking Status: Never smoker Tobacco Use: Non-smoker Alcohol: Occasional - Birthdays/Holidays. Drugs: None - *Family History Maternal Family History: Family History (Last Reviewed 06/21/19 @ 14:[address] Gideon Chatman MD) Mother Atrial fibrillation Father Abdominal aneurysm History Items: No pertinent history Paternal Family History: Family History (Last Reviewed 06/21/19 @ 14:[address] Gideon Chatman MD) Mother Atrial fibrillation Father Abdominal aneurysm History Items: No pertinent history Review of Systems Constitutional: Denies: Chills, Fever, Weight Change HEENT: Denies: Head Aches, Sinus Congestion, Sinus Drainage Cardiovascular: Denies: Chest Pain, Palpitations Respiratory: Denies: Cough, Shortness of breath at rest, Sputum production Gastrointestinal: Denies: Abdominal Pain, Nausea, Vomiting Genitourinary: Denies: Dysuria Musculoskeletal: Denies: Joint Pain, Joint Tenderness Skin: Denies: Rash, Wounds Neurological: Reports: Change in Speech, Confusion, - - Aphasic.. Denies: Focal weakness, Numbness, Tingling Psychiatric: Denies: Anxiety, Depression, Homicidal Ideations, Suicidal Ideations Hematologic/ Lymphatic: Denies: Easy Bruising, Easy Bleeding VTE Information - Inpt Only VTE Present on Admission: No VTE Mechan Device Prophylaxis: Knee High DOMINIC Hose VTE Pharm Prophylaxis ordered?: No Reason prophylaxis not ordered:: Medical Contraindication Patient Problems: Active and Suspected Problems (Last Reviewed 06/21/19 @ 14:[address] Gideon Chatman MD) Debility (Acute) Fall (Acute) Subdural hemorrhage (Acute) Encephalopathy (Acute) Dysphagia (Acute) Left hemiparesis (Acute) Bowel incontinence (Acute) Bladder incontinence (Acute) - Physical Exam Vitals/I&O's: Vital Signs Temp Pulse Resp BP Pulse Ox 98.0 F 105 H 16 155/67 H 95 08/01/19 14:31 08/01/19 21:10 08/01/19 15:39 08/01/19 21:10 08/01/19 15:39 Oxygen Delivery Method Room Air Weight: 88.677 kg Body Mass Index (BMI) 30.6 General: Alert, Oriented x3, Cooperative HEENT: Atraumatic, PERRLA, EOMI, Normocephalic, - - gwyn intact along midline scalp incision, Corpak. Neck: Supple, No JVD, Negative Carotid Bruits Lungs: Clear to auscultation, Normal air movement Cardiovascular: Regular rate, No murmurs Abdomen: Bowel Sounds Present, Soft, Non Tender Extremities: No edema, Capillary Refill Less than 3 Seconds Skin: No rashes, No breakdown Musculoskeletal: No Tenderness to Palpation of Joints or Extremities Neurological: Cranial nerves II-XII grossly intact, - - Left hemiparesis. Psych/Mental Status: Normal Affect, Appropriate Laboratory Results 08/01/19 18:00: Urine Color Yellow, Urine Clarity Clear, Urine pH 7.0, Ur Specific [place] 1.015, Urine Protein Negative, Urine Glucose (UA) Normal, Urine Ketones Negative, Urine Occult Blood Negative, Urine Nitrite Negative, Urine Bilirubin Negative, Urine Urobilinogen Normal, Ur Leukocyte Esterase Negative, Urine RBC 0 SEEN, Urine WBC 0 SEEN, Ur Squamous Epith Cells 0-5 SEEN, Amorphous Sediment 1+, Urine Bacteria 0 SEEN, Urine Mucus 0 SEEN 08/01/19 18:41: WBC 6.1, RBC 3.71 L, Hgb 11.2 L, Hct 35.5 L, MCV 95.7, MCH 30.2, MCHC 31.5 L, RDW Std Deviation 53.6 H, RDW Coeff of Dwight 15.4 H, Plt Count 289, MPV 11.4, Immature Gran % (Auto) 0.300, Neut % (Auto) 67.2, Lymph % (Auto) 16.7 L, Twiggs % (Auto) 9.2, Eos % (Auto) 5.6 H, Baso % (Auto) 1.0, Absolute Neuts (auto) 4.1, Absolute Lymphs (auto) 1.02, Nucleated RBC % 0 08/01/19 18:41: Sodium 139, Potassium 4.4, Chloride 108 H, Carbon Dioxide 27.0, Anion Gap 4 L, BUN 32 H, Creatinine 0.84, Estim Creat Clear Calc 49.35, Est GFR (MDRD) Af Amer 84, Est GFR (MDRD) Non-Af 69, BUN/Creatinine Ratio 38.2 H, Glucose 99, Calcium 9.9 Current Medications Acetaminophen (Tylenol) 650 mg PO Q4H PRN PRN PRN Reason: Pain or Fever Calamine/Phenol (Calmoseptine Ointment) 1 applic TOPICAL TID [facility]; Protocol Cholecalciferol (Vitamin D (25mcg)) 1,000 unit PO DAILY [facility] Docusate Sodium (Colace Syrup) 100 mg PO BID [facility] Last Admin: 08/01/19 21:06 Dose: 100 mg Documented by: Enteral Nutritional Formula (Jevity 1.5) 355 ml NG 0800,1200,1800 [facility] Last Admin: 08/01/19 21:26 Dose: 355 ml Documented by: Sodium Chloride () 1,000 mls @ 75 mls/hr IV .[id number] [facility] Levetiracetam (Keppra Oral Solution) 500 mg PO BID [facility] Last Admin: 08/01/19 21:06 Dose: 500 mg Documented by: Levothyroxine Sodium (Synthroid) 50 mcg PO DAILY [facility] Lisinopril (Zestril) 20 mg PO BID [facility] Last Admin: 08/01/19 21:07 Dose: 20 mg Documented by: Magnesium Oxide (Mag-Ox 400) 800 mg PO DAILY [facility] Metoprolol Tartrate (Lopressor (Beta Rosy)) 100 mg PO Q8 [facility] Last Admin: 08/01/19 21:10 Dose: 100 mg Documented by: Multivitamins (Multivitamin) 1 tablet PO DAILY@0800 [facility] Ondansetron HCl (Zofran Odt) 4 mg PO Q8H PRN PRN PRN Reason: NAUSEA/VOMITING Pantoprazole Sodium (Protonix) 20 mg PO DAILY [facility] Pravastatin Sodium (Pravachol) 80 mg PO QHS [facility] Last Admin: 08/01/19 21:08 Dose: 80 mg Documented by: Quetiapine Fumarate (Seroquel) 12.5 mg PO Q8H PRN PRN PRN Reason: AGITATION Tolterodine Tartrate (Detrol La) 2 mg PO DAILY [facility] Tuberculin PPD (Tubersol, Aplisol, Ppd) 5 tu ID X1 ONE Stop: 08/02/19 10:01 Tuberculin PPD (Tubersol, Aplisol, Ppd) 5 tu ID X1 ONE Stop: 08/09/19 10:01 Zonisamide (Zonegran) 100 mg PO QHS [facility] Last Admin: 08/01/19 21:09 Dose: 100 mg Documented by: Assessment/Plan All Active Problems (Last Reviewed 06/21/19 @ 14:[address] Gideon Chatman MD) Debility (Acute) Fall (Acute) Subdural hemorrhage (Acute) Encephalopathy (Acute) Dysphagia (Acute) Left hemiparesis (Acute) Bowel incontinence (Acute) Bladder incontinence (Acute) 84 year old female with below past medical history hospitalized for left subdural hemorrhage, underwent craniotomy with evacuation 07/20/2019, admitted to TCU with debility, here for rehabilitation, strengthening, prior to disposition determination. Debility - PT/OT. Dysphagia - ST. Pain - Tylenol 650MG Q4H PRN. Bowel - Colace 100MG BID, Soap suds enema x 1 for rectal stool impaction. Adult Immunization - Administer Prevnar 13, Pneumovax 23, Fluzone as appropriate. DVT prophylaxis - Hold, recent Subdural hemorrhage. Vitamin D deficiency - D3 1000IU daily. Nutrition - Jevity 1.5 355ML TID, MVI daily. Seizure disorder - Keppra 500MG BID, Zonisamide 100MG QHS. Hypothyroidism - Levothyroxine 50MCG daily. Hypertension - Metoprolol 100MG Q8H, Lisinopril 20MG BID. Hypomagnesemia - Magnesium Oxide 800MG daily. Skin irritation - Calmoseptine TID. Nausea - Zofran ODT 4MG Q8H PRN. GERD - Pantoprazole 20MG daily. Hyperlipidemia - Pravastatin 80MG QHS, high intensity statin must be intolerable. Agitation - Seroquel 12.5MG Q8H PRN, GDR once resident more stable. Overactive bladder - Tolterodine 2MG daily. Change in mental status - Respiratory panel pending, CT head no contrast pending, combination of dehydration, rectal impaction. Dehydration - NS 1 liter IV bolus, then 75cc/hour, reassess in AM.
[2019-08-01] MEDS: 0.9% Normal Saline 1,000 ML 60 ML IV (22:04)
[2019-08-01] MEDS: Menthol/Lanolin/Calamine/Znox 113 GM Tube 1 APPLIC TOPICAL (22:07)
[2019-08-02] VITALS (7 sets, daily range): BP systolic 134–197; BP diastolic 69–96; PULSE 89–130; RESP 15–20; TEMP 36.1–37.3; O2SAT 85–95
--- NOTE | 2019-08-02 02:35 | EKG12_ITS ---
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 Rate : 094 BPM Atrial Rate : 110 BPM P-R Int : 000 ms QRS Dur : 090 ms QT Int : 366 ms P-R-T Axes : 000 -22 068 degrees QTc Int : 457 ms Atrial fibrillation Nonspecific ST abnormality Abnormal ECG Confirmed by DAIJA HUNTER, KRISTA ([id number]), editorial manager SUDHAKAR URBANO ([id number]) on 08/07/2019 9:40:22 AM Referred By: Chris Vieira Confirmed By:KRISTA CHOE MD
--- NOTE | 2019-08-02 02:45 | ECHOD_ITS ---
Reason For Study: Syncope Procedure This was a 2D Doppler, Color Flow transthoracic echocardiogram. Exam performed portable in patient room. Left Ventricle Normal LV size. Moderate concentric left ventricular hypertrophy. Left ventricular systolic function is normal. The estimated ejection fraction is 60 %. No regional wall motion abnormalities noted. Right Ventricle Normal RV size. Normal systolic function. Atria The left atrium is severely enlarged. The right atrium is severely enlarged. Mitral Valve Mild focal mitral valve calcification. Mild-Moderate (1-2+) mitral valve insufficiency. Tricuspid Valve Normal tricuspid valve. Mild to moderate (1-2+) tricuspid valve insufficiency. Pulmonary artery systolic pressure is 50 mmHg. Aortic Valve Normal aortic valve. Trisinus/trileaflet aortic valve. Pulmonic Valve Normal pulmonic valve. Mild (1+) pulmonic valve insufficiency. Great Vessels Normal aortic root. The pulmonary artery is normal size. Normal inferior vena cava. Pericardium/Pleural No pericardial effusion. MMode/2D Measurements & Calculations LVIDd: 4.3 cm IVSd: 1.6 cm Ao root diam: 3.2 cm LVIDs: 2.3 cm LVPWd: 1.6 cm RVDd: 2.9 cm FS: 45.0 % LAV(MOD-bp): 173.1 ml LA A4 area: 38.3 cm2 LA dimension(2D): 7.2 cm LAV(MOD-bp) Indexed: 86.5 ml/m2 LAV(MOD-sp2): 208.2 ml LAV(MOD-sp4): 137.7 ml RA A4 area: 42.2 cm2 Time Measurements MV dec time: 0.11 sec Doppler Measurements & Calculations MV E max yamileth: 153.3 cm/sec MV V2 max: 164.2 cm/sec MV P1/2t max yamileth: 163.1 cm/sec MV max P.8 mmHg MV P1/2t: 66.1 msec MV V2 mean: 88.4 cm/sec MV dec slope: 722.6 cm/sec2 MV mean P.9 mmHg MV V2 VTI: 28.9 cm MVA(P1/2t): 3.3 cm2 Ao V2 max: 146.7 cm/sec LV V1 max: 103.7 cm/sec PA V2 max: 120.6 cm/sec Ao max P.6 mmHg LV V1 max P.3 mmHg Ao V2 mean: 97.5 cm/sec Ao mean P.2 mmHg Ao V2 VTI: 25.6 cm PI end-d yamileth: 153.0 cm/sec TR max yamileth: 332.3 cm/sec TR max P.2 mmHg Interpretation Summary Normal LV size. Moderate concentric left ventricular hypertrophy. Left ventricular systolic function is normal. The estimated ejection fraction is 60 %. No regional wall motion abnormalities noted. Mild-Moderate (1-2+) mitral valve insufficiency. Pulmonary artery systolic pressure is 50 mmHg. The left atrium is severely enlarged. The right atrium is severely enlarged. Compared to prior study, there is no significant change. Ordering Physician: Travis Brown Referring Physician: Ugo Lauren Performed By: Cristel Benjamin RDCS, RVT
--- NOTE | 2019-08-02 02:51 | PCM.RRT.BLA ---
Rapid Response Note - Blank Responded to rapid response: Patient had transient non responsiveness. She vomited. Noted to have loose stools. Of note patient is on tube feeding. Initially vomitus was brown. Later, nurse reported maroon vomitus Patient is alert but unable to talk. Nurse reports that at times she talks and at times she does not Heart sounds S1, S2 tachycardia Lungs clear to auscultate Abdomen soft non tender Syncope EKG with non specific ST abnormalities CXR and KUB about 9 hours ago did not show any acute abnormality Keep npo and hold po meds On Keppra 500mg bid and Zonegram 100mg qhs. Earlier before this rapid response reportedly patient was starring. Increase Keppra to 750 mg bid and give IV in the setting of npo status. Get an Echo Hydralazine IV ordered Protonix 40mg IV bid
[2019-08-02] MEDS: Ondansetron 4 MG/2 ML Vial IV (02:52)
--- NOTE | 2019-08-02 03:10 | NURSING ---
Addendum entered by Kristie Andrade 08/02/19 06:28: Pt able to state name. Nodded her head no when asked if she was having pain or nausea. Nodded her head no if there was anything staff could do for her. Pt had taken O2 off, sating at 94% on RA. NS running in RT FA at 60cc/hr. Resting in bed with call light in reach. Original Note: Staff into do rounds. Dark brown vomit noted on pts gown. Pt began to go unresponsive and vomited up a large amount of brown emesis. GUT DROPPER called at 0215. BP 197/92 HR 97 O2 85% Venti mask at 6L by respiratory therapy up to 92% RR 20. Dr. Tripp to the . Pt noted to have another large amount of maroon looking emesis. New order from Dr. Tripp for EKG, NPO status, echo in the AM, Protonix IV start now, Keppra IV, Zofran PRN Q6 IV, Hydralazine IV. Pt noted to have XXL liquid ring bowel movement. Pt shook her head no when asking if she was in pain. BP recheck 134/88 HR 89 Temp. 99.2. IV zofran given and IV protonix started. NNO per Dr. Tripp. Pt denied nausea or pain. Resting in bed comfortably with call light in reach.
[2019-08-02] MEDS: Menthol/Lanolin/Calamine/Znox 113 GM Tube 1 APPLIC TOPICAL ×3 (05:37→23:00)
[2019-08-02] MEDS: Nystatin Powder 15gm Bottle 1 APPLIC TOPICAL ×2 (05:37→22:58)
[2019-08-02 06:04] LABS: Absolute Lymphocyte Count 0.84 X10^3/uL (0.83-4.51); Absolute Neutrophil Count 7.6 X10^3/uL (2.0-7.7); Basophil# 0.06 X10^3/uL; Basophil% 0.6 % (0-1); Eosinophil# 0.15 X10^3/uL; Eosinophils% 1.6 % (0-5); Hematocrit 35.8 % (37-47); Hemoglobin 11.1 g/dL (12.0-15.0); Lymphocyte # 0.84 X10^3/ul (4.0); Mean Corpuscular Hgb 30.4 pg (27.0-32.0); Mean Corpuscular Volume 98.1 fL (81-99); Mean Platelet Vol. 11.8 fl (6.2-12.0); Monocyte# 0.55 X10^3/uL; Monocyte% 5.9 % (0-10); NRBC Flagged by Analyzer 0 % (0-5); Neutrophil # 7.64 X10^3/uL (2.7-7.7); Neutrophil % 82.4 % (47-70); Platelet Count 307 K/mm3 (150-450); RBC Distribution Width CV 15.6 % (11.6-14.6); RBC Distribution Width SD 55.4 fl (35.1-43.9); Red Blood Count 3.65 M/mm3 (4.2-5.4); White Blood Count 9.3 K/mm3 (4.4-11.0)
[2019-08-02 06:20] LABS: Anion Gap 5 (5-15); BUN 31 mg/dL (7-18); BUN/Creat Ratio 33.8 RATIO (10-20); Calcium,Total 9.6 mg/dL (8.5-10.1); Chloride 111 mmol/L (98-107); Creatinine, Serum 0.92 mg/dL (0.55-1.02); EST Glomerular Filtration Rate 62 mL/min (>60); Est Glom Filt Rate - Afr Amer 75 mL/min (>60); Estimated Creatinine Clearance 45.06 ml/min; Glucose 120 mg/dL (74-106); Potassium 4.1 mmol/L (3.5-5.1); Sodium Level 140 mmol/L (136-145)
[2019-08-02] MEDS: 0.9% Saline Lock 10 ML Syringe IV (10:36)
[2019-08-02] MEDS: Tuberculin,Purif.prot.deriv. 50 TU/ML Vial 5 ML ID (11:34)
--- NOTE | 2019-08-02 12:45 | NURSING ---
PT AWAKE,WILL NOT SPEAK JUST SHAKES HEAD YES OR NO,DOES LOOK AT THIS NURSE. ASKED PT IF SHE HAD ANY PAIN,PT SHOCK HEAD NO. PT REFUSED THIS NURSE TO DO ANY MOUTH CARE. IV RUNNING. SPLINT TO LEFT HAND ON. SHERRIE WRAPS AND HEEL BOOTS ON. HOB 30 DEGREES,BED IN LOWEST POSITION,MATS TO FLOOR AND ALARM ON. REPORTED TO NEVAEH MATHEWS
[2019-08-02] MEDS: 0.9% Normal Saline 1,000 ML 60 ML IV (15:57)
[2019-08-02] MEDS: Jevity 1.5. 1,000 ML Bottle 355 ML NG (18:20)
[2019-08-02] MEDS: Metoprolol Tartrate 100 MG Tablet PO (22:40)
[2019-08-02] MEDS: Pravastatin 80 MG Tablet PO (22:51)
[2019-08-02] MEDS: Zonisamide 50 MG Capsule 100 MG PO (22:51)
[2019-08-03 02:21] VITALS: BP 171/90; PULSE 85; RESP 16; O2SAT 95
[2019-08-03] MEDS: Menthol/Lanolin/Calamine/Znox 113 GM Tube 1 APPLIC TOPICAL ×3 (04:57→20:05)
[2019-08-03] MEDS: Enoxaparin 30 MG/0.3 ML Syringe SC (04:57)
[2019-08-03] MEDS: Ondansetron 4 MG/2 ML Vial IV (05:01)
[2019-08-03 05:09] VITALS: BP 193/93; PULSE 81
[2019-08-03] MEDS: Lisinopril 20 MG Tablet PO ×2 (05:09→17:25)
[2019-08-03] MEDS: Docusate Sodium 100 MG/10 ML UDC PO ×2 (05:09→17:25)
[2019-08-03] MEDS: Metoprolol Tartrate 100 MG Tablet PO ×3 (05:09→22:24)
[2019-08-03] MEDS: Magnesium Oxide 400 MG Tablet 800 MG PO (05:10)
[2019-08-03] MEDS: Nystatin Powder 15gm Bottle 1 APPLIC TOPICAL ×2 (05:11→20:05)
[2019-08-03] MEDS: Levothyroxine 50 MCG Tablet PO (05:11)
[2019-08-03] MEDS: Multivitamins,Therapeutic Tablet 1 TABLET PO (09:04)
[2019-08-03] MEDS: Jevity 1.5. 1,000 ML Bottle 355 ML NG ×2 (09:04→17:25)
--- NOTE | 2019-08-03 09:15 | NURSING ---
Pt not arousable. Pt sleeping and snoring. Performed sternal rub with no results. Charge nurse notified.
--- NOTE | 2019-08-03 09:30 | NURSING ---
Pt given 355 ml of Jevity 1.5. Pt groaned as if she was in pain while administering the Jevity. HR increased to 111 bpm. When not administering Jevity, HR decreased to 88 bpm. Charge nurse notified.
--- NOTE | 2019-08-03 09:54 | NURSING ---
Notified Dr. Vieira of nursing reporting that pt groans in pain and her heart rate increases when the pt receives tube feeding. Dr. Vieira stated for nursing to continue tube feeding and to notify family that pt remains in guarded condition. Will notify family.
--- NOTE | 2019-08-03 10:00 | NURSING ---
This nurse notified patient's daughter. She is on her way to see the patient.
--- NOTE | 2019-08-03 10:09 | NURSING ---
Received order from Dr. Vieira to reposition the patient's corpak and to pull back 5 cm and tape in [address]. Also received order for 1 liter of Go lightly via corpak.
--- NOTE | 2019-08-03 10:18 | NURSING ---
Contacted Dr. Vieira to ask if he would like an X-Ray to be completed after repositioning of the corpak. Dr. Vieira stated, no. Statement repeated back.
--- NOTE | 2019-08-03 11:25 | NURSING ---
Nursing dental laboratory supervisor NEVAEH Mata, adjusted the Corpak by 5cm per Dr. Vieira's orders. pt tolerated well.
[2019-08-03] MEDS: 0.9% Saline Lock 10 ML Syringe IV ×3 (13:49→22:32)
[2019-08-03 14:26] VITALS: BP 153/95; PULSE 115; RESP 16; TEMP 36.4; O2SAT 95
[2019-08-03 15:15] VITALS: BP 153/95; PULSE 115
--- NOTE | 2019-08-03 19:00 | NURSING ---
Per patients daughter she did not want her mom to have the noon dose of jevity until after the Golytley. Pt had sevral extra large BM from the time of refusal until the Golytley was brought to the floor. Pt daughter then did not want her mom to take the golytley.
[2019-08-03 20:10] VITALS: PULSE 104; RESP 16; O2SAT 97
--- NOTE | 2019-08-03 21:38 | NURSING ---
Pt daughter Kimber called in to check on mother this nurse stated there way nothing new to report on mother. Mother still lethargy open and closes eyes. Lung clear A&P bilaterally. Was not able to answer place, time, or person. Rn made aware.
[2019-08-03 22:24] VITALS: BP 172/88; PULSE 104
[2019-08-03] MEDS: 0.9% Normal Saline 1,000 ML 60 ML IV (22:35)
[2019-08-04] VITALS (10 sets, daily range): BP systolic 126–170; BP diastolic 63–95; PULSE 75–115; RESP 16–92; TEMP 37.1; O2SAT 95–97
[2019-08-04] MEDS: 0.9% Saline Lock 10 ML Syringe IV (05:04)
[2019-08-04] MEDS: hydrALAZINE 20 MG/ML Vial 10 MG IV (05:05)
[2019-08-04] MEDS: Nystatin Powder 15gm Bottle 1 APPLIC TOPICAL ×2 (05:10→21:50)
[2019-08-04] MEDS: Menthol/Lanolin/Calamine/Znox 113 GM Tube 1 APPLIC TOPICAL ×3 (05:11→21:50)
[2019-08-04] MEDS: Lisinopril 20 MG Tablet PO ×2 (05:12→17:25)
[2019-08-04] MEDS: Levothyroxine 50 MCG Tablet PO (05:12)
[2019-08-04] MEDS: Enoxaparin 30 MG/0.3 ML Syringe SC (05:13)
[2019-08-04] MEDS: Metoprolol Tartrate 100 MG Tablet PO ×3 (05:13→21:51)
[2019-08-04] MEDS: Multivitamins,Therapeutic Tablet 1 TABLET PO (09:15)
[2019-08-04] MEDS: Jevity 1.5. 1,000 ML Bottle 355 ML NG ×2 (09:16→13:44)
--- NOTE | 2019-08-04 11:30 | NURSING ---
[place] remove from scalp, per order, pt tolerated well.
--- NOTE | 2019-08-04 15:14 | NURSING ---
Pt changed after present with extra large, mustard colored liquid stool. Pt presents with firm distended abdomen. Pt has had multiple loose bowel movements however, family declined Golytely yesterday.
[2019-08-04] MEDS: 0.9% Normal Saline 1,000 ML 60 ML IV (17:01)
--- NOTE | 2019-08-04 19:12 | NURSING ---
Pt family in and we discussed pt Jevity and previous tube feeding. Pt daughter feels Jevity is not being tolerated and that she had it through a pump before and now it is bolus and this is also contributing to her stomach being distended and all of the loose stools. Charge nurse notified.
[2019-08-05] VITALS (7 sets, daily range): BP systolic 141–158; BP diastolic 68–96; PULSE 90–120; RESP 16–20; TEMP 36.6–37.4; O2SAT 93–98; BMI 31.8
[2019-08-05] MEDS: Menthol/Lanolin/Calamine/Znox 113 GM Tube 1 APPLIC TOPICAL ×3 (05:06→19:56)
[2019-08-05] MEDS: Nystatin Powder 15gm Bottle 1 APPLIC TOPICAL ×2 (05:06→19:55)
[2019-08-05] MEDS: Enoxaparin 30 MG/0.3 ML Syringe SC (05:07)
[2019-08-05] MEDS: Lisinopril 20 MG Tablet PO ×2 (05:08→18:45)
[2019-08-05] MEDS: Levothyroxine 50 MCG Tablet PO (05:08)
[2019-08-05] MEDS: Metoprolol Tartrate 100 MG Tablet PO ×3 (05:12→19:50)
[2019-08-05] MEDS: 0.9% Saline Lock 10 ML Syringe IV (05:42)
--- NOTE | 2019-08-05 08:39 | RAD_ITS ---
STUDY: X-RAY - ABDOMEN/PELVIS REASON FOR EXAM: Female, 84 years old. ABDOMINAL DISTENTION, RECENT FALL AND SURGERY TECHNIQUE: Single AP view of the abdomen / pelvis. COMPARISON: Comparison is made with prior examination dated August 01, 2019. Also FINDINGS: Mild increased markings at the lung bases suggestive of atelectasis/scarring. A Dobbhoff tube is seen with the tip in the second portion of the duodenum. There is an unremarkable bowel gas pattern. There is no demonstrated free abdominal air. The visualized liver, spleen and kidneys are grossly normal in size and morphology. Normal soft tissue structures. There are diffuse degenerative changes of the visualized lumbar spine. RAD/Abdomen Single View IMPRESSION: The tip of the feeding tube is in the second portion of the duodenum. Electronically Signed: Raffaele Wang, at 11:38 EDT , Service support ,
--- NOTE | 2019-08-05 10:19 | NT.THERAPY_ITS ---
Nutrition Therapy Report - History Nutrition Services has been consulted to:: Manage enteral nutrition Current diet / nutrition support order:: Regular diet- puree, nectar thick liquid. Pt PO intake <50% at meals, providing 355mL bolus feed of Jevity 1.5 w/ 50 mL flush before and after each bolus to provide an additional 532.5 calories, 22.6 g protein per bolus. - Anthropometric Measurements Height:: 5 ft 7 in Weight:: 92.442 kg Body Mass Index (BMI):: 31.8 - Relevant Labs Relevant Labs:: RBC 3.65 M/mm3 (4.2-5.4) L 08/02/19 05:20 Hgb 11.1 g/dL (12.0-15.0) L 08/02/19 05:20 Hct 35.8 % (37-47) L 08/02/19 05:20 MCHC 31.0 g/dL (32-36) L 08/02/19 05:20 RDW Std Deviation 55.4 fl (35.1-43.9) H 08/02/19 05:20 RDW Coeff of Dwight 15.6 % (11.6-14.6) H 08/02/19 05:20 Neut % (Auto) 82.4 % (47-70) H 08/02/19 05:20 Lymph % (Auto) 9.0 % (19-41) L 08/02/19 05:20 Eos % (Auto) 5.6 % (0-5) H 08/01/19 18:41 Chloride 111 mmol/L (98-107) H 08/02/19 05:20 Anion Gap 4 (5-15) L 08/01/19 18:41 BUN 31 mg/dL (7-18) H 08/02/19 05:20 BUN/Creatinine Ratio 33.8 RATIO (10-20) H 08/02/19 05:20 Glucose 120 mg/dL (74-106) H 08/02/19 05:20 - Assessment Food / Nutrition-Related History:: RDN received call from RNMelva, requesting Continuous TF as RN reports pt not tolerating bolus feeds. Pt on regular diet w/ consistency per CNC SERVICE TECHNICIAN. Pt w/ noted vomiting episode 08/01 resulting in NPO. Diet order resumed 08/01 and pt w/ continued refusal of PO diet. Pt w/ <50% PO intake at meals providing 355mL bolus feed of Jevity 1.5 w/ 50mL flush before and after each bolus to provide an additional 532.5 calories, 22.6 g protein per bolus. Residuals per RN note (0,0). Wt increase 3.8 kg since previous review. Per RN note pt w/ BLE non-pitting edema. Pt w/ loose, large BMs w/ last BM 08/03- stool agent on Emar. - Nutrition Diagnosis Problem / Etiology / Signs & Symptoms (PES):: Inadequate oral intake related to debility status post craniotomy as evidenced by pt refusing PO diet and requiring increased nutrition support via NG. Evidence of Malnutrition Exists:: No - Nutrition Intervention Nutrition Prescription:: [id number] calories/day, 78-88 g protein/day - Food / Nutrient Delivery Interventions Summary of nutrition intervention:: RDN received call from RNMelva, requesting Continuous TF as RN reports pt not tolerating bolus feeds. Nutrition support ordered as / adjusted to:: If pt unable to tolerate PO diet- Rec Jevity 1.5 at goal rate of 45ml/hr w/ 130 ml H2O flush every 4 hours to provide 1620 calories, 69 gram protein, and 1601 ml total free water per day. Would intiate at 20 ml/hr and advance by 20 ml every 8 hours as pt tolerates. Will start with contiuous feeds until pt tolerance established. TF will meet ~100% of pt estimated nutrition needs. Daily wts. Nutrition education provided?: No - MNT Monitoring Further MNT monitoring and evaluation required?: Yes MNT Follow-up in:: 7-9 days - call clinical RD at [phone] w/ questions/concerns
--- NOTE | 2019-08-05 10:47 | NURSING ---
Addendum entered by Melva Blanco 08/05/19 14:12: dr Vieira ok with changing keppra & protonix from IV to NG Addendum entered by Melva Blanco 08/05/19 11:02: Dr Vieira updated, new order to DC IVF. Original Note: non pitting edema noted in pt right hand by IV site, pt getting NS IV. RN notified and IV NS stopped and held at this time. Normal temperature noted in right hand. Awaiting orders from Dr. Vieira.
--- NOTE | 2019-08-05 11:23 | NURSING ---
PER RN, THIS NURSE REMOVE IV FROM RIGHT HAND DUE TO SWELLING.
[2019-08-05] MEDS: Jevity 1.5 1,000 ML 20 ML GT (12:46)
--- NOTE | 2019-08-05 13:58 | CASEMGMT ---
Social Work Physician met with patient and dtr and discuss end of life decisions. Met with patient and dtr to follow up. Patient alert for discussion, but not talkative - could nod her head 'yes' 'no'. Dtr tearful but understanding of conversation. Provided supportive listening. Pt and dtr agreeable to comfort measures. Provided list of hospice agencies. Educated to IPU and private pay and SNF and private pay costs. Dtr to discuss with family and notify SW of decision. Explained insurance issued NRD 08/07. Will continue to follow. YUNG Nogueira OIL PIPELINE OPERATOR
--- NOTE | 2019-08-05 14:35 | PCM.PN.RX ---
<Cristel Burrows M - Last Filed: 08/05/19 14:35> Progress Note - Pharmacy Subjective: [] Objective: Allergies naproxen Adverse Reaction (Severe, Verified 06/21/19 13:53) GI BLeed ezetimibe [From Vytorin] Adverse Reaction (Intermediate, Verified 06/21/19 13:53) mylagias simvastatin [From Vytorin] Adverse Reaction (Intermediate, Verified 06/21/19 13:53) mylagias celebrex Allergy (Uncoded 06/21/19 13:53) GI Bleed Current Medications Generic Name Dose Route Start Last Admin Trade Name Freq PRN Reason Stop Dose Admin Acetaminophen 650 mg 08/01/19 15:25 Tylenol PO Q4H PRN PRN Pain or Fever Calamine/Phenol 1 applic 08/01/19 22:00 08/05/19 13:43 Calmoseptine Ointment TOPICAL 1 applicatio TID LEANN Administration Protocol Docusate Sodium 100 mg 08/01/19 18:00 08/05/19 05:06 Colace Syrup PO Not Given BID LEANN Enoxaparin Sodium 30 mg 08/03/19 06:00 08/05/19 05:07 Lovenox SC 30 mg DAILY@0600 LEANN Administration Hydralazine HCl 10 mg 08/02/19 02:44 08/04/19 05:05 Apresoline Iv IV 10 mg Q4H PRN PRN Administration SBP > 160 Pantoprazole Sodium 40 mg/ 110 mls @ 330 mls/hr 08/02/19 02:44 08/05/19 05:25 Sodium Chloride IV Infused Q12 LEANN Infusion Levetiracetam 250 mg/ Sodium 102.5 mls @ 400 mls/hr 08/02/19 18:00 08/05/19 05:58 Chloride IV Infused Q12 LEANN Infusion Enteral Nutritional Formula 1,000 mls @ 45 mls/hr 08/05/19 12:00 08/05/19 12:46 Jevity 1.5 GT 20 mls/hr .[id number] LEANN Administration Levothyroxine Sodium 50 mcg 08/02/19 06:00 08/05/19 05:08 Synthroid PO 50 mcg DAILY LEANN Administration Lisinopril 20 mg 08/01/19 18:00 08/05/19 05:08 Zestril PO 20 mg BID LEANN Administration Metoprolol Tartrate 100 mg 08/01/19 22:00 08/05/19 13:44 Lopressor (Beta Rosy) PO 100 mg Q8 LEANN Administration Nystatin 1 applic 08/02/19 06:00 08/05/19 05:06 Mycostatin Powder TOPICAL 1 applicatio 0600,2200 LEANN Administration Protocol Quetiapine Fumarate 12.5 mg 08/01/19 14:57 Seroquel PO Q8H PRN PRN AGITATION Sodium Chloride 10 - 20 ml 08/02/19 02:41 08/05/19 05:42 IV 20 ml PRN PRN Administration SALINE FLUSH Tuberculin PPD 5 tu 08/09/19 10:00 Tubersol, Aplisol, Ppd ID 08/09/19 10:01 X1 ONE Problem List (Last Reviewed 06/21/19 @ 14:[address] Gideon Chatman MD) Debility (Acute) Fall (Acute) Subdural hemorrhage (Acute) Encephalopathy (Acute) Dysphagia (Acute) Left hemiparesis (Acute) Receptive aphasia (Chronic) Seizure disorder (Chronic) Atrial fibrillation (Chronic) Hypertension (Chronic) Chronic obstructive pulmonary disease (Chronic) Rheumatoid arthritis (Chronic) Bowel incontinence (Acute) Bladder incontinence (Acute) Anemia (Chronic) Atrophic vaginitis (Chronic) Overactive bladder (Chronic) Vital Signs Temp Pulse Resp BP Pulse Ox 97.9 F 120 H 20 H 158/95 H 96 08/05/19 13:54 08/05/19 13:54 08/05/19 13:54 08/05/19 13:54 08/05/19 13:54 Oxygen Flow Rate (L/min) 3 Oxygen Delivery Method Room Air Weight: 92.442 kg Body Mass Index (BMI) 31.8 Sodium 140 mmol/L (136-145) 08/02/19 05:20 Potassium 4.1 mmol/L (3.5-5.1) 08/02/19 05:20 Chloride 111 mmol/L (98-107) H 08/02/19 05:20 Carbon Dioxide 24.0 mmol/L (21.0-32.0) 08/02/19 05:20 Anion Gap 5 (5-15) 08/02/19 05:20 BUN 31 mg/dL (7-18) H 08/02/19 05:20 Creatinine 0.92 mg/dL (0.55-1.02) 08/02/19 05:20 Est GFR (MDRD) Af Amer 75 mL/min (>60) 08/02/19 05:20 Est GFR (MDRD) Non-Af 62 mL/min (>60) 08/02/19 05:20 BUN/Creatinine Ratio 33.8 RATIO (10-20) H 08/02/19 05:20 Glucose 120 mg/dL (74-106) H 08/02/19 05:20 Assessment/Plan: 1. Pain: Tylenol 650mg PO Q4h PRN Pain or Fever. Please continue to monitor for increased/decreased pain, PRN medication usage. *2. DVT Prophylaxis: Lovenox 30mg SC Daily. Please consider increasing dose to 40mg SC Daily, as CrCl is > 30ml/min (Last CrCl = 45ml/min on 08/02/19). *3. Seizure Disorder: Keppra 250mg IV Q12hr. Please continue to monitor for medication effectiveness, seizure activity. Please consider switching from IV to PO if patient can tolerate and clinically appropriate, oral Keppra has excellent bioavailability, thanks. 4. Hypertension: Lisinopril 20mg PO BID, Lopressor 100mg PO Q8, Hydralazine 10mg IV Q4h PRN SBP >160. Please continue to monitor HR, BP, renal function, electrolytes. *5. GERD: Protonix 40mg IV Q12hr. Please consider changing to PO if able. If patient cannot swallow pills PO, recommend changing to Lansoprazole 30mg GT BID, as this capsule can be split and put down a GT, thanks. 6. Hypothyroid: Synthroid 50mcg PO Daily. Please continue to monitor for S/S hypo/hyperthyroid. Please obtain Thyroid panel as clinically appropriate. Psychotropic Medications: *7. Agitation: Seroquel 12.5mg PO Q8h PRN. Please consider a GDR by 01/2020 if clinically appropriate. Unnecessary Medications: None Bowel Regimen: Docusate 100mg PO BID. Please continue to monitor for increased/decreased constipation/diarrhea. Date of Note:: 08/05/19 - Provider Comments Provider responsibility: Provider responsible to enter orders to implement recommendations <Chris Vieira Chi - Last Filed: 03/09/20 17:19> Progress Note - Pharmacy Subjective: [] Objective: Allergies naproxen Adverse Reaction (Severe, Verified 06/21/19 13:53) GI BLeed ezetimibe [From Vytorin] Adverse Reaction (Intermediate, Verified 06/21/19 13:53) mylagias simvastatin [From Vytorin] Adverse Reaction (Intermediate, Verified 06/21/19 13:53) mylagias celebrex Allergy (Uncoded 06/21/19 13:53) GI Bleed Current Medications Generic Name Dose Route Start Last Admin Trade Name Freq PRN Reason Stop Dose Admin Acetaminophen 650 mg 08/01/19 15:25 08/05/19 16:52 Tylenol PO 650 mg Q4H PRN PRN Administration Pain or Fever Atropine Sulfate 1 drop 08/05/19 16:24 08/05/19 16:47 Atropisol SL 1 drop Q3H PRN PRN Administration secretions Calamine/Phenol 1 applic 08/01/19 22:00 08/05/19 13:43 Calmoseptine Ointment TOPICAL 1 applicatio TID LEANN Administration Protocol Docusate Sodium 100 mg 08/01/19 18:00 08/05/19 05:06 Colace Syrup PO Not Given BID LEANN Enoxaparin Sodium 30 mg 08/03/19 06:00 08/05/19 05:07 Lovenox SC 30 mg DAILY@0600 LEANN Administration Hydralazine HCl 10 mg 08/02/19 02:44 08/04/19 05:05 Apresoline Iv IV 10 mg Q4H PRN PRN Administration SBP > 160 Pantoprazole Sodium 40 mg/ 110 mls @ 330 mls/hr 08/02/19 02:44 08/05/19 05:25 Sodium Chloride IV Infused Q12 LEANN Infusion Levetiracetam 250 mg/ Sodium 102.5 mls @ 400 mls/hr 08/02/19 18:00 08/05/19 05:58 Chloride IV Infused Q12 LEANN Infusion Enteral Nutritional Formula 1,000 mls @ 45 mls/hr 08/05/19 12:00 08/05/19 12:46 Jevity 1.5 GT 20 mls/hr .[id number] LEANN Administration Levothyroxine Sodium 50 mcg 08/02/19 06:00 08/05/19 05:08 Synthroid PO 50 mcg DAILY LEANN Administration Lisinopril 20 mg 08/01/19 18:00 08/05/19 05:08 Zestril PO 20 mg BID LEANN Administration Metoprolol Tartrate 100 mg 08/01/19 22:00 08/05/19 13:44 Lopressor (Beta Rosy) PO 100 mg Q8 LEANN Administration Nystatin 1 applic 08/02/19 06:00 08/05/19 05:06 Mycostatin Powder TOPICAL 1 applicatio 0600,2200 LEANN Administration Protocol Quetiapine Fumarate 12.5 mg 08/01/19 14:57 Seroquel PO Q8H PRN PRN AGITATION Sodium Chloride 10 - 20 ml 08/02/19 02:41 08/05/19 05:42 IV 20 ml PRN PRN Administration SALINE FLUSH Tuberculin PPD 5 tu 08/09/19 10:00 Tubersol, Aplisol, Ppd ID 08/09/19 10:01 X1 ONE Problem List (Last Reviewed 06/21/19 @ 14:[address] Gideon Chatman MD) Debility (Acute) Fall (Acute) Subdural hemorrhage (Acute) Encephalopathy (Acute) Dysphagia (Acute) Left hemiparesis (Acute) Receptive aphasia (Chronic) Seizure disorder (Chronic) Atrial fibrillation (Chronic) Hypertension (Chronic) Chronic obstructive pulmonary disease (Chronic) Rheumatoid arthritis (Chronic) Bowel incontinence (Acute) Bladder incontinence (Acute) Anemia (Chronic) Atrophic vaginitis (Chronic) Overactive bladder (Chronic) Vital Signs Temp Pulse Resp BP Pulse Ox 99.4 F H 90 18 148/81 H 93 08/05/19 16:27 08/05/19 16:27 08/05/19 16:27 08/05/19 16:27 08/05/19 16:27 Oxygen Flow Rate (L/min) 3 Oxygen Delivery Method Room Air Weight: 92.442 kg Body Mass Index (BMI) 31.8 Sodium 140 mmol/L (136-145) 08/02/19 05:20 Potassium 4.1 mmol/L (3.5-5.1) 08/02/19 05:20 Chloride 111 mmol/L (98-107) H 08/02/19 05:20 Carbon Dioxide 24.0 mmol/L (21.0-32.0) 08/02/19 05:20 Anion Gap 5 (5-15) 08/02/19 05:20 BUN 31 mg/dL (7-18) H 08/02/19 05:20 Creatinine 0.92 mg/dL (0.55-1.02) 08/02/19 05:20 Est GFR (MDRD) Af Amer 75 mL/min (>60) 08/02/19 05:20 Est GFR (MDRD) Non-Af 62 mL/min (>60) 08/02/19 05:20 BUN/Creatinine Ratio 33.8 RATIO (10-20) H 08/02/19 05:20 Glucose 120 mg/dL (74-106) H 08/02/19 05:20 Assessment/Plan: Psychotropic Medications: Unnecessary Medications: Bowel Regimen: - Provider Comments Provider responsibility: Provider responsible to enter orders to implement recommendations Provider Comments to Recommendations by Pharmacy: Agree
--- NOTE | 2019-08-05 16:27 | NURSING ---
Pt was heard coughing from her room, this nurse immediately assessed resident and noted a moist cough which was causing her to gag, the pt struggled to bring up secretions. This nurse provided mouth care with no relief. RN notified and new order for suctioning was obtained. Pt was suctioned per order but still had a moist cough/gagging. RN notified
--- NOTE | 2019-08-05 16:28 | NURSING ---
Addendum entered by Melva Blanco 08/05/19 17:32: dr jamison notified, PRN atropine ordered. Original Note: PT CANT COUGH UP SECRETIONS,THIS NURSE SUCTIONED PT. WAS NOT ABLE TO GET ALL,PT BITING DOWN ON SUCTION TUBE. VITALS DONE. REPORTED TO NEVAEH REEVES
[2019-08-05] MEDS: Atropine Sulfate 1% 2 ml Bottle 1 DRP SL (16:47)
[2019-08-05] MEDS: Acetaminophen 325 MG Tablet 650 MG PO (16:52)
--- NOTE | 2019-08-05 17:32 | NURSING ---
dr jamison reviewed KUB, no new orders at this time.
[2019-08-05] MEDS: Docusate Sodium 100 MG/10 ML UDC PO (18:45)
[2019-08-05] MEDS: Acetaminophen 650 MG/20 ML UDC NG (19:47)
[2019-08-05] MEDS: levETIRAcetam Oral Solution 500 MG/5 ML PO (19:48)
--- NOTE | 2019-08-06 00:36 | NURSING ---
Patient having a hard time coughing up secretions. Patient suctioned at this time and patient oral care given at this time. Patient with green secretions at this time. Will continue to monitor an assess.
[2019-08-06] MEDS: Atropine Sulfate 1% 2 ml Bottle 1 DRP SL ×2 (00:40→15:58)
[2019-08-06] MEDS: Acetaminophen 650 MG/20 ML UDC NG ×4 (04:15→21:04)
[2019-08-06] MEDS: Enoxaparin 30 MG/0.3 ML Syringe SC (05:58)
[2019-08-06] MEDS: Menthol/Lanolin/Calamine/Znox 113 GM Tube 1 APPLIC TOPICAL ×3 (05:59→21:16)
[2019-08-06] MEDS: Levothyroxine 50 MCG Tablet PO (05:59)
[2019-08-06] MEDS: Lisinopril 20 MG Tablet PO ×2 (05:59→17:30)
[2019-08-06] MEDS: Docusate Sodium 100 MG/10 ML UDC PO ×2 (05:59→17:29)
[2019-08-06] MEDS: Nystatin Powder 15gm Bottle 1 APPLIC TOPICAL ×2 (06:00→21:15)
[2019-08-06] MEDS: levETIRAcetam Oral Solution 500 MG/5 ML PO ×2 (06:01→17:30)
[2019-08-06 06:06] VITALS: BP 150/80; PULSE 108
[2019-08-06] MEDS: Metoprolol Tartrate 100 MG Tablet PO ×3 (06:06→21:04)
[2019-08-06 08:34] VITALS: PULSE 76; RESP 18; O2SAT 92
[2019-08-06] MEDS: Jevity 1.5 1,000 ML 45 ML GT (10:16)
--- NOTE | 2019-08-06 10:48 | NURSING ---
Upon assessment pt noted to have sutures to left scalp. This nurse removed sutures per order. Scalp noted to be well approximated with no active draining. Dried sanguinous remnants noted on scalp around suture site, no redness/edema or other s/s of infection noted at this time. Pt tolerated procedure well, when asked if she was having any pain pt shook her head no.
--- NOTE | 2019-08-06 11:53 | CASEMGMT ---
Social Work Spoke with patient's dtr to follow up with hospice consult. Dtr requested to speak with physician when rounding. Notified physician. Will continue to follow. YUNG NogueiraW
[2019-08-06 13:13] VITALS: BP 158/79; PULSE 76
[2019-08-06 13:24] VITALS: BP 158/79; PULSE 76; RESP 16; TEMP 37.1; O2SAT 95
[2019-08-06 21:04] VITALS: BP 162/97; PULSE 104
[2019-08-07 05:38] VITALS: BP 166/107; PULSE 90
[2019-08-07] MEDS: Metoprolol Tartrate 100 MG Tablet PO ×3 (05:38→21:10)
[2019-08-07] MEDS: Docusate Sodium 100 MG/10 ML UDC PO ×2 (05:43→17:47)
[2019-08-07] MEDS: Levothyroxine 50 MCG Tablet PO (05:43)
[2019-08-07] MEDS: Acetaminophen 650 MG/20 ML UDC NG ×4 (05:43→21:10)
[2019-08-07] MEDS: Lisinopril 20 MG Tablet PO ×2 (05:43→17:48)
[2019-08-07] MEDS: levETIRAcetam Oral Solution 500 MG/5 ML PO ×2 (05:44→17:47)
[2019-08-07] MEDS: Enoxaparin 30 MG/0.3 ML Syringe SC (05:45)
[2019-08-07] MEDS: Nystatin Powder 15gm Bottle 1 APPLIC TOPICAL ×2 (05:53→21:10)
[2019-08-07] MEDS: Menthol/Lanolin/Calamine/Znox 113 GM Tube 1 APPLIC TOPICAL ×3 (05:53→21:10)
--- NOTE | 2019-08-07 08:32 | NURSING ---
TUBE FEED CLAMPED FOR RADIOLOGY.
--- NOTE | 2019-08-07 08:35 | RAD_ITS ---
STUDY: X-RAY - ABDOMEN/PELVIS REASON FOR EXAM: Female, 84 years old. Abdomen distention TECHNIQUE: Single AP view of the abdomen / pelvis. COMPARISON: 08/05/2019 FINDINGS: Feeding tube with the tip in the right upper quadrant likely in the second portion the duodenum. There is an unremarkable bowel gas pattern. The visualized liver, spleen and kidneys are grossly normal in size and morphology. Normal soft tissue structures. Normal visualized osseous structures. RAD/Abdomen Single View IMPRESSION: 1. Feeding tube in the right upper quadrant likely in the second portion the duodenum. 2. No bowel obstruction. Electronically Signed: Jan Rutledge MD at 11:39 EDT Tel , Service support ,
--- NOTE | 2019-08-07 10:31 | CASEMGMT ---
Social Work IDT met with patient, daughter and two sons for care plan meeting. Discussed patient's progress in therapy. Pt is able to nod to 'yes' no' questions. Pt was more alert the previous day when physician spoke with pt and family. Family understands patient's wishes are to have a good quality of life and does not want any life sustaining treatment. They are realistic to pts current condition but family states pt indicated she would like feeding tube and continue to work with therapy at this time. Educated to SW assistance throughout process. Explained insurance coverage through current stay and hospice and pt would pay privately for any room and board costs. Family understand. Therapy states pt is dependent for all ADLs, getting to the edge of bed and ROM to gain strength but pt fatigues quickly. ST working with pt on swallowing precautions. Explained insurance update 08/07 and continued stay is not guaranteed. Family has chosen [facility] if pt would need to DC or if to DC with hospice. Will continue to follow and assist. Aletha Ma, BUNDLE PACKER HYDRAULIC LIFT DRIVER
--- NOTE | 2019-08-07 11:11 | MDS.RN ---
Daughter and son notified of current recommended visitor precautions in place regarding COVID-19
[2019-08-07 13:40] VITALS: BP 138/78; PULSE 96; RESP 18; TEMP 36.2; O2SAT 94
--- NOTE | 2019-08-07 14:31 | CHAPLAIN ---
Type of Pastoral Visit _x__ Initial Visit ___ Follow-up Visit ___ On-call Visit ___ General Patient Visit ___ Spiritual Assessment ___ Family Conference ___ Bereavement ___ Rapid Response ___ Code Blue ___ Other (describe below) Pastoral Care Referral From ___ Patient ___ Family ___ Nurse ___ Physician _x__ Stucco Mason ___ Booking Supervisor ___ Other (describe below) Sacrament/Intervention _x__ Active listening ___ Anointing ___ Restorationist ___ Bereavement ___ Communion ___ Angie exploration ___ ___ Life review ___ Prayer ___ Reconciliation ___ Sacrament of Sick _x__ Supportive presence ___ Wedding ___ Other (describe below) Pastoral Comments patient is alert and responds by nods of head; daughter is present and answers questions of this electronic funds transfer coordinator; offer of support and presence given and received; no immediate needs identified by daughter
[2019-08-07 14:40] VITALS: BP 138/78; PULSE 96
[2019-08-07] MEDS: Jevity 1.5 1,000 ML 45 ML GT (15:12)
[2019-08-07 20:56] VITALS: PULSE 105; O2SAT 93
[2019-08-07 21:10] VITALS: BP 137/75; PULSE 105
[2019-08-08] MEDS: levETIRAcetam Oral Solution 500 MG/5 ML PO ×2 (05:37→18:06)
[2019-08-08] MEDS: Docusate Sodium 100 MG/10 ML UDC PO (05:37)
[2019-08-08] MEDS: Levothyroxine 50 MCG Tablet PO (05:37)
[2019-08-08] MEDS: Enoxaparin 30 MG/0.3 ML Syringe SC (05:37)
[2019-08-08] MEDS: Acetaminophen 650 MG/20 ML UDC NG ×4 (05:37→22:42)
[2019-08-08] MEDS: Lisinopril 20 MG Tablet PO ×2 (05:37→18:06)
[2019-08-08] MEDS: Nystatin Powder 15gm Bottle 1 APPLIC TOPICAL ×2 (05:38→22:41)
[2019-08-08] MEDS: Menthol/Lanolin/Calamine/Znox 113 GM Tube 1 APPLIC TOPICAL ×3 (05:38→22:41)
[2019-08-08 05:42] VITALS: BP 138/74; PULSE 83
[2019-08-08] MEDS: Metoprolol Tartrate 100 MG Tablet PO ×3 (05:42→22:42)
--- NOTE | 2019-08-08 09:58 | MDS.RN ---
Staff assessment for pain completed.
[2019-08-08 13:40] VITALS: BP 133/61; PULSE 95; RESP 16; TEMP 37.1; O2SAT 96
[2019-08-08] MEDS: Jevity 1.5 1,000 ML 45 ML GT (14:47)
[2019-08-08 14:48] VITALS: BP 133/61; PULSE 95
[2019-08-08 22:42] VITALS: BP 163/92; PULSE 107
[2019-08-09] MEDS: Docusate Sodium 100 MG/10 ML UDC PO ×2 (04:24→16:52)
[2019-08-09] MEDS: Levothyroxine 50 MCG Tablet PO (04:25)
[2019-08-09] MEDS: Enoxaparin 30 MG/0.3 ML Syringe SC (04:26)
[2019-08-09] MEDS: levETIRAcetam Oral Solution 500 MG/5 ML PO ×2 (04:27→16:50)
[2019-08-09] MEDS: Lisinopril 20 MG Tablet PO ×2 (04:27→16:50)
[2019-08-09 04:28] VITALS: BP 156/77; PULSE 93
[2019-08-09] MEDS: Menthol/Lanolin/Calamine/Znox 113 GM Tube 1 APPLIC TOPICAL ×3 (04:28→20:12)
[2019-08-09] MEDS: Metoprolol Tartrate 100 MG Tablet PO ×3 (04:28→20:20)
[2019-08-09] MEDS: Acetaminophen 650 MG/20 ML UDC NG ×4 (04:29→20:15)
[2019-08-09] MEDS: Nystatin Powder 15gm Bottle 1 APPLIC TOPICAL ×2 (04:42→20:12)
[2019-08-09 05:59] LABS: Absolute Lymphocyte Count 0.74 X10^3/uL (0.83-4.51); Absolute Neutrophil Count 3.5 X10^3/uL (2.0-7.7); Basophil# 0.04 X10^3/uL; Basophil% 0.8 % (0-1); Eosinophil# 0.28 X10^3/uL; Eosinophils% 5.6 % (0-5); Hematocrit 34.8 % (37-47); Hemoglobin 10.6 g/dL (12.0-15.0); Lymphocyte # 0.74 X10^3/ul (4.0); Lymphocyte % 14.7 % (19-41); Mean Corp Hgb Conc 30.5 g/dL (32-36); Mean Corpuscular Hgb 30.5 pg (27.0-32.0); Mean Corpuscular Volume 100.3 fL (81-99); Monocyte# 0.42 X10^3/uL; Monocyte% 8.3 % (0-10); NRBC Flagged by Analyzer 0 % (0-5); Neutrophil # 3.53 X10^3/uL (2.7-7.7); Neutrophil % 70.2 % (47-70); Platelet Count 256 K/mm3 (150-450); RBC Distribution Width CV 15.9 % (11.6-14.6); RBC Distribution Width SD 58.8 fl (35.1-43.9); Red Blood Count 3.47 M/mm3 (4.2-5.4)
[2019-08-09 06:43] LABS: Anion Gap 6 (5-15); BUN 19 mg/dL (7-18); BUN/Creat Ratio 27.5 RATIO (10-20); Calcium,Total 9.6 mg/dL (8.5-10.1); Chloride 109 mmol/L (98-107); Creatinine, Serum 0.69 mg/dL (0.55-1.02); EST Glomerular Filtration Rate 86 mL/min (>60); Est Glom Filt Rate - Afr Amer 104 mL/min (>60); Estimated Creatinine Clearance 41.45 ml/min; Glucose 114 mg/dL (74-106); Potassium 3.8 mmol/L (3.5-5.1); Sodium Level 141 mmol/L (136-145)
[2019-08-09] MEDS: Tuberculin,Purif.prot.deriv. 50 TU/ML Vial 5 ML ID (11:05)
--- NOTE | 2019-08-09 12:59 | CASEMGMT ---
Social Work IDT agreeable allowing one visitor was important to patient's end of life medical conditions. Family aware. YUNG NogueiraW
[2019-08-09 13:39] VITALS: BP 151/75; PULSE 62; RESP 18; TEMP 36.4; O2SAT 95
[2019-08-09 16:51] VITALS: BP 151/75; PULSE 62
[2019-08-09] MEDS: Jevity 1.5 1,000 ML 45 ML GT (20:11)
[2019-08-09 20:20] VITALS: BP 157/90; PULSE 109
[2019-08-09 23:26] VITALS: PULSE 109; RESP 16; O2SAT 97
[2019-08-10] MEDS: Acetaminophen 650 MG/20 ML UDC NG ×4 (04:20→21:40)
[2019-08-10] MEDS: Levothyroxine 50 MCG Tablet PO (04:52)
[2019-08-10] MEDS: Lisinopril 20 MG Tablet PO ×2 (04:52→17:46)
[2019-08-10] MEDS: Enoxaparin 30 MG/0.3 ML Syringe SC (04:52)
[2019-08-10] MEDS: Docusate Sodium 100 MG/10 ML UDC PO ×2 (04:52→17:46)
[2019-08-10] MEDS: levETIRAcetam Oral Solution 500 MG/5 ML PO ×2 (04:53→17:46)
[2019-08-10] MEDS: Nystatin Powder 15gm Bottle 1 APPLIC TOPICAL ×2 (04:53→21:39)
[2019-08-10 04:54] VITALS: BP 153/90; PULSE 84
[2019-08-10] MEDS: Menthol/Lanolin/Calamine/Znox 113 GM Tube 1 APPLIC TOPICAL ×3 (04:54→21:38)
[2019-08-10] MEDS: Metoprolol Tartrate 100 MG Tablet PO ×3 (04:54→21:38)
[2019-08-10 09:26] VITALS: PULSE 83; RESP 18; O2SAT 94
[2019-08-10 13:59] VITALS: BP 150/73; PULSE 83; RESP 20; TEMP 36.9; O2SAT 94
[2019-08-10 14:55] VITALS: BP 150/73; PULSE 83
[2019-08-10 21:38] VITALS: BP 171/108; PULSE 109
[2019-08-11] MEDS: Jevity 1.5 1,000 ML 45 ML GT ×2 (01:45→21:58)
[2019-08-11] MEDS: Acetaminophen 650 MG/20 ML UDC NG ×4 (03:27→19:41)
[2019-08-11] MEDS: Docusate Sodium 100 MG/10 ML UDC PO ×2 (04:25→17:51)
[2019-08-11] MEDS: Menthol/Lanolin/Calamine/Znox 113 GM Tube 1 APPLIC TOPICAL ×3 (04:25→19:42)
[2019-08-11] MEDS: Enoxaparin 30 MG/0.3 ML Syringe SC (04:26)
[2019-08-11] MEDS: levETIRAcetam Oral Solution 500 MG/5 ML PO ×2 (04:26→17:51)
[2019-08-11] MEDS: Nystatin Powder 15gm Bottle 1 APPLIC TOPICAL ×2 (04:27→19:41)
[2019-08-11] MEDS: Lisinopril 20 MG Tablet PO ×2 (04:27→17:51)
[2019-08-11] MEDS: Levothyroxine 50 MCG Tablet PO (04:27)
[2019-08-11 05:54] VITALS: BP 133/97; PULSE 86
[2019-08-11] MEDS: Metoprolol Tartrate 100 MG Tablet PO ×3 (05:54→19:40)
--- NOTE | 2019-08-11 09:24 | NURSING ---
PT received mouth care/hair care at this time. Pt hair was washed and combed and a new dressing applied to face to secure NG tube. PT tolerated well, is currently sleeping in room.
[2019-08-11 14:12] VITALS: BP 148/70; RESP 20; TEMP 36.7; O2SAT 94
--- NOTE | 2019-08-11 14:13 | PCA ---
pt's pulse was ranging from 109-124 while doing vital signs
[2019-08-11 15:11] VITALS: BP 148/70; PULSE 65
[2019-08-11 19:30] VITALS: PULSE 85; RESP 16; O2SAT 95
[2019-08-11 19:40] VITALS: BP 165/96; PULSE 85; RESP 16; TEMP 36.9; O2SAT 95
[2019-08-12 05:09] VITALS: BP 142/78; PULSE 60
[2019-08-12] MEDS: Metoprolol Tartrate 100 MG Tablet PO ×3 (05:09→23:01)
[2019-08-12] MEDS: Lisinopril 20 MG Tablet PO ×2 (05:10→17:23)
[2019-08-12] MEDS: Levothyroxine 50 MCG Tablet PO (05:10)
[2019-08-12] MEDS: Acetaminophen 650 MG/20 ML UDC NG ×4 (05:10→22:50)
[2019-08-12] MEDS: levETIRAcetam Oral Solution 500 MG/5 ML PO ×2 (05:10→17:22)
[2019-08-12] MEDS: Enoxaparin 30 MG/0.3 ML Syringe SC (05:11)
[2019-08-12] MEDS: Nystatin Powder 15gm Bottle 1 APPLIC TOPICAL ×2 (05:11→23:00)
[2019-08-12] MEDS: Docusate Sodium 100 MG/10 ML UDC PO ×2 (05:11→17:22)
[2019-08-12] MEDS: Menthol/Lanolin/Calamine/Znox 113 GM Tube 1 APPLIC TOPICAL ×3 (05:11→22:57)
[2019-08-12 10:00] VITALS: PULSE 80; RESP 16; O2SAT 95
[2019-08-12 14:18] VITALS: BP 124/64; PULSE 87; RESP 16; TEMP 36.5; O2SAT 96
[2019-08-12 15:51] VITALS: BP 124/64; PULSE 87
[2019-08-12] MEDS: Jevity 1.5 1,000 ML 45 ML GT (22:57)
[2019-08-12 23:01] VITALS: BP 132/74; PULSE 82
[2019-08-13] MEDS: Acetaminophen 650 MG/20 ML UDC NG ×4 (04:34→22:14)
[2019-08-13] MEDS: Enoxaparin 30 MG/0.3 ML Syringe SC (05:53)
[2019-08-13] MEDS: Docusate Sodium 100 MG/10 ML UDC PO (05:54)
[2019-08-13] MEDS: levETIRAcetam Oral Solution 500 MG/5 ML PO (05:54)
[2019-08-13] MEDS: Lisinopril 20 MG Tablet PO (05:54)
[2019-08-13] MEDS: Nystatin Powder 15gm Bottle 1 APPLIC TOPICAL ×2 (05:54→22:10)
[2019-08-13] MEDS: Menthol/Lanolin/Calamine/Znox 113 GM Tube 1 APPLIC TOPICAL ×3 (05:55→22:10)
[2019-08-13 05:56] VITALS: BP 139/72; PULSE 91
[2019-08-13] MEDS: Levothyroxine 50 MCG Tablet PO (05:56)
[2019-08-13] MEDS: Metoprolol Tartrate 100 MG Tablet PO (05:56)
[2019-08-13 10:00] VITALS: PULSE 89; RESP 18; O2SAT 94
--- NOTE | 2019-08-13 12:36 | CASEMGMT ---
Addendum entered by Aletha Ma 08/13/19 14:56: Insurance approved pt for more time - NRD 08/15. Notified dtr. Dtr to continue to proceed with meeting [facility]. Awaiting outcomes from SNFs. Original Note: Social Work Spoke with patient's daughter that insurance was update 08/11 and stated they would be issuing a DC date. Discussed DC options for pt. Dtr would like referrals to [facility] and [facility] and agreeable to [facility] referral. All referrals made. Dtr understands pt liability at SNF. Will continue to follow. Aletha Ma, YUNG LICENSED PRACTICAL NURSE
[2019-08-13 14:22] VITALS: BP 101/62; PULSE 82; RESP 16; TEMP 36.6; O2SAT 99
--- NOTE | 2019-08-13 14:59 | CASEMGMT ---
Social Work Reviewed and agreed with social work customer success intern documentation on this date. Aletha Ma, LEGAL DOCUMENT SPECIALIST INDUSTRIAL PSYCHOLOGY PROFESSOR
[2019-08-13 15:06] VITALS: BP 136/76; PULSE 92
[2019-08-13] MEDS: Metoprolol Tartrate 100 MG Tablet NG (15:06)
[2019-08-13] MEDS: Lisinopril 20 MG Tablet NG (18:04)
[2019-08-13] MEDS: Docusate Sodium 100 MG/10 ML UDC NG (18:04)
[2019-08-13] MEDS: levETIRAcetam Oral Solution 500 MG/5 ML GT (18:15)
[2019-08-13 22:13] VITALS: BP 95/41
[2019-08-14] MEDS: Jevity 1.5 1,000 ML 45 ML GT (00:13)
[2019-08-14 05:01] VITALS: BP 142/66; PULSE 114
[2019-08-14] MEDS: levETIRAcetam Oral Solution 500 MG/5 ML GT ×2 (05:01→17:02)
[2019-08-14] MEDS: Lisinopril 20 MG Tablet NG ×2 (05:01→17:02)
[2019-08-14] MEDS: Metoprolol Tartrate 100 MG Tablet NG ×3 (05:01→20:41)
[2019-08-14] MEDS: Levothyroxine 50 MCG Tablet NG (05:01)
[2019-08-14] MEDS: Docusate Sodium 100 MG/10 ML UDC NG ×2 (05:02→17:02)
[2019-08-14] MEDS: Enoxaparin 30 MG/0.3 ML Syringe SC (05:02)
[2019-08-14] MEDS: Acetaminophen 650 MG/20 ML UDC NG ×4 (05:02→22:19)
[2019-08-14] MEDS: Menthol/Lanolin/Calamine/Znox 113 GM Tube 1 APPLIC TOPICAL ×3 (05:16→20:51)
[2019-08-14] MEDS: Nystatin Powder 15gm Bottle 1 APPLIC TOPICAL ×2 (05:16→20:52)
--- NOTE | 2019-08-14 13:38 | MDS.RN ---
Information for the mds was obtained from review of the clinical record, interview of resident, staff, and direct observation of resident's care.
[2019-08-14 13:53] VITALS: BP 136/64; PULSE 75; RESP 20; TEMP 36.6; O2SAT 94
[2019-08-14 15:07] VITALS: PULSE 75
[2019-08-14 20:41] VITALS: BP 153/93; PULSE 80
[2019-08-14 20:52] VITALS: PULSE 80; RESP 16; O2SAT 95
[2019-08-15] MEDS: Jevity 1.5 1,000 ML 45 ML GT (03:04)
[2019-08-15] MEDS: Acetaminophen 650 MG/20 ML UDC NG ×4 (03:05→21:42)
[2019-08-15] MEDS: Menthol/Lanolin/Calamine/Znox 113 GM Tube 1 APPLIC TOPICAL ×3 (06:16→20:32)
[2019-08-15] MEDS: Nystatin Powder 15gm Bottle 1 APPLIC TOPICAL ×2 (06:17→20:33)
[2019-08-15] MEDS: Docusate Sodium 100 MG/10 ML UDC NG ×2 (06:18→17:00)
[2019-08-15] MEDS: Enoxaparin 30 MG/0.3 ML Syringe SC (06:18)
[2019-08-15] MEDS: Lisinopril 20 MG Tablet NG ×2 (06:18→17:02)
[2019-08-15 06:19] VITALS: BP 135/75; PULSE 85
[2019-08-15] MEDS: Levothyroxine 50 MCG Tablet NG (06:19)
[2019-08-15] MEDS: levETIRAcetam Oral Solution 500 MG/5 ML GT ×2 (06:19→17:00)
[2019-08-15] MEDS: Metoprolol Tartrate 100 MG Tablet NG ×3 (06:19→20:31)
[2019-08-15 10:00] VITALS: PULSE 63; RESP 16; O2SAT 94
--- NOTE | 2019-08-15 10:17 | NURSING ---
Pt received full bed bath this morning including having her hair washed.
--- NOTE | 2019-08-15 13:46 | CASEMGMT ---
Social Work Talked with pt dtr on the phone. Informed dtr that both [facility] and [facility] accepted pt with Hospice. Dtr to call [facility] about which facility the family and pt prefer. Pt dtr called and left message with [facility] that family is requesting [facility]. [facility] called [facility] and informed of decision. But, that pt dtr indicated she would like to know appeal rights if insurance decides to cut pt services. Kourtney Marks, social work internet project manager Aletha Ma, YUNG OIL INSPECTOR
[2019-08-15 13:56] VITALS: BP 126/81; PULSE 99; RESP 20; TEMP 36.3; O2SAT 93
[2019-08-15 14:26] VITALS: BP 126/81; PULSE 99
[2019-08-15 20:31] VITALS: BP 144/65; PULSE 88
[2019-08-15] MEDS: Atropine Sulfate 1% 2 ml Bottle 1 DRP SL (22:02)
[2019-08-16] MEDS: levETIRAcetam Oral Solution 500 MG/5 ML GT ×2 (03:11→17:24)
[2019-08-16 03:12] VITALS: BP 131/60; PULSE 88
[2019-08-16] MEDS: Metoprolol Tartrate 100 MG Tablet NG ×3 (03:12→20:24)
[2019-08-16] MEDS: Docusate Sodium 100 MG/10 ML UDC NG ×2 (03:12→17:24)
[2019-08-16] MEDS: Enoxaparin 30 MG/0.3 ML Syringe SC (03:12)
[2019-08-16] MEDS: Acetaminophen 650 MG/20 ML UDC NG ×4 (03:12→20:23)
[2019-08-16] MEDS: Levothyroxine 50 MCG Tablet NG (03:13)
[2019-08-16] MEDS: Nystatin Powder 15gm Bottle 1 APPLIC TOPICAL ×2 (03:30→20:25)
[2019-08-16] MEDS: Menthol/Lanolin/Calamine/Znox 113 GM Tube 1 APPLIC TOPICAL ×3 (03:31→20:24)
[2019-08-16] MEDS: Lisinopril 20 MG Tablet NG ×2 (03:37→17:24)
[2019-08-16 05:44] LABS: Absolute Lymphocyte Count 1.24 X10^3/uL (0.83-4.51); Absolute Neutrophil Count 4.3 X10^3/uL (2.0-7.7); Basophil# 0.03 X10^3/uL; Basophil% 0.4 % (0-1); Eosinophil# 0.41 X10^3/uL; Eosinophils% 6.1 % (0-5); Hematocrit 36.5 % (37-47); Hemoglobin 11.3 g/dL (12.0-15.0); Lymphocyte # 1.24 X10^3/ul (4.0); Lymphocyte % 18.5 % (19-41); Mean Corpuscular Hgb 30.8 pg (27.0-32.0); Mean Corpuscular Volume 99.5 fL (81-99); Mean Platelet Vol. 11.8 fl (6.2-12.0); Monocyte% 10.4 % (0-10); NRBC Flagged by Analyzer 0 % (0-5); Neutrophil # 4.29 X10^3/uL (2.7-7.7); Neutrophil % 64.2 % (47-70); Platelet Count 273 K/mm3 (150-450); RBC Distribution Width SD 58.5 fl (35.1-43.9); Red Blood Count 3.67 M/mm3 (4.2-5.4); White Blood Count 6.7 K/mm3 (4.4-11.0)
[2019-08-16 05:59] LABS: Anion Gap 5 (5-15); BUN 31 mg/dL (7-18); BUN/Creat Ratio 34.4 RATIO (10-20); Chloride 104 mmol/L (98-107); EST Glomerular Filtration Rate 64 mL/min (>60); Est Glom Filt Rate - Afr Amer 77 mL/min (>60); Estimated Creatinine Clearance 46.06 ml/min; Glucose 111 mg/dL (74-106); Potassium 4.4 mmol/L (3.5-5.1); Sodium Level 138 mmol/L (136-145)
[2019-08-16] MEDS: Jevity 1.5 1,000 ML 45 ML GT (07:14)
[2019-08-16 13:24] VITALS: BP 137/78; PULSE 91; RESP 18; TEMP 36.4; O2SAT 94
[2019-08-16 14:25] VITALS: BP 137/78; PULSE 91
--- NOTE | 2019-08-16 17:12 | NURSING ---
pt c/o hunger pains, Dietary will need to be notified per Dr Vieira, called Shanti at this time with no answer
[2019-08-16] MEDS: NYSTATIN 500,000 UNIT/5 ML UDC 500000 UNIT PO ×2 (17:24→20:23)
[2019-08-16 20:03] VITALS: PULSE 99; O2SAT 93
[2019-08-16 20:24] VITALS: BP 130/62; PULSE 99
[2019-08-17] MEDS: Enoxaparin 30 MG/0.3 ML Syringe SC (05:18)
[2019-08-17] MEDS: levETIRAcetam Oral Solution 500 MG/5 ML GT ×2 (05:18→17:45)
[2019-08-17] MEDS: Lisinopril 20 MG Tablet NG ×2 (05:19→17:46)
[2019-08-17] MEDS: Levothyroxine 50 MCG Tablet NG (05:19)
[2019-08-17] MEDS: Docusate Sodium 100 MG/10 ML UDC NG ×2 (05:20→17:45)
[2019-08-17] MEDS: NYSTATIN 500,000 UNIT/5 ML UDC 500000 UNIT PO ×4 (05:20→21:54)
[2019-08-17] MEDS: Acetaminophen 650 MG/20 ML UDC NG ×4 (05:20→21:54)
[2019-08-17] MEDS: Menthol/Lanolin/Calamine/Znox 113 GM Tube 1 APPLIC TOPICAL ×3 (05:21→22:06)
[2019-08-17] MEDS: Nystatin Powder 15gm Bottle 1 APPLIC TOPICAL ×2 (05:22→22:07)
[2019-08-17 05:28] VITALS: BP 140/79; PULSE 83
[2019-08-17] MEDS: Metoprolol Tartrate 100 MG Tablet NG ×3 (05:28→21:54)
[2019-08-17] MEDS: Jevity 1.5 1,000 ML 45 ML GT (05:37)
[2019-08-17 13:40] VITALS: BP 131/90; PULSE 82; RESP 16; TEMP 36.6; O2SAT 95
[2019-08-17 14:29] VITALS: PULSE 82
--- NOTE | 2019-08-17 17:47 | NURSING ---
Son was pleased to witness pt requesting to use the bathroom, bedpan was used, had successful bowl movement. Brief had a smear of bm and where incontinent of urine, davon care given, son in room helping with oral care, will continue to monitor
[2019-08-17 21:54] VITALS: BP 161/85; PULSE 113
[2019-08-18] MEDS: Acetaminophen 650 MG/20 ML UDC NG ×4 (06:18→20:48)
[2019-08-18] MEDS: levETIRAcetam Oral Solution 500 MG/5 ML GT ×2 (06:18→17:54)
[2019-08-18] MEDS: NYSTATIN 500,000 UNIT/5 ML UDC 500000 UNIT PO ×4 (06:18→20:48)
[2019-08-18] MEDS: Docusate Sodium 100 MG/10 ML UDC NG (06:18)
[2019-08-18] MEDS: Lisinopril 20 MG Tablet NG ×2 (06:18→17:53)
[2019-08-18 06:19] VITALS: BP 100/57; PULSE 95
[2019-08-18] MEDS: Levothyroxine 50 MCG Tablet NG (06:19)
[2019-08-18] MEDS: Metoprolol Tartrate 100 MG Tablet NG ×3 (06:19→20:49)
[2019-08-18] MEDS: Jevity 1.5 1,000 ML 45 ML GT (06:33)
[2019-08-18] MEDS: Enoxaparin 30 MG/0.3 ML Syringe SC (06:34)
[2019-08-18] MEDS: Menthol/Lanolin/Calamine/Znox 113 GM Tube 1 APPLIC TOPICAL ×3 (06:34→20:48)
[2019-08-18] MEDS: Nystatin Powder 15gm Bottle 1 APPLIC TOPICAL ×2 (06:36→20:49)
[2019-08-18 13:31] VITALS: BP 130/61; PULSE 89; RESP 14; TEMP 36.7; O2SAT 93
[2019-08-18 14:57] VITALS: PULSE 89
[2019-08-18 20:49] VITALS: BP 143/71; PULSE 82
--- NOTE | 2019-08-18 20:58 | NURSING ---
Patient's right eye noted to be red. Patient c/o eye itching. Will update Dr. Vieira
[2019-08-19] MEDS: levETIRAcetam Oral Solution 500 MG/5 ML GT ×2 (04:37→17:01)
[2019-08-19] MEDS: Acetaminophen 650 MG/20 ML UDC NG ×4 (04:37→22:44)
[2019-08-19] MEDS: NYSTATIN 500,000 UNIT/5 ML UDC 500000 UNIT PO ×3 (04:37→22:40)
[2019-08-19] MEDS: Docusate Sodium 100 MG/10 ML UDC NG ×2 (04:37→17:02)
[2019-08-19] MEDS: Enoxaparin 30 MG/0.3 ML Syringe SC (04:37)
[2019-08-19] MEDS: Menthol/Lanolin/Calamine/Znox 113 GM Tube 1 APPLIC TOPICAL ×3 (04:38→22:35)
[2019-08-19] MEDS: Lisinopril 20 MG Tablet NG ×2 (04:38→17:02)
[2019-08-19] MEDS: Levothyroxine 50 MCG Tablet NG (04:38)
[2019-08-19] MEDS: Nystatin Powder 15gm Bottle 1 APPLIC TOPICAL ×2 (04:38→22:37)
[2019-08-19 04:45] VITALS: BP 131/80; PULSE 66
[2019-08-19] MEDS: Metoprolol Tartrate 100 MG Tablet NG ×3 (04:45→22:40)
[2019-08-19] MEDS: Jevity 1.5 1,000 ML 45 ML GT (05:06)
[2019-08-19 08:45] VITALS: PULSE 72; RESP 16; O2SAT 93
--- NOTE | 2019-08-19 09:23 | NURSING ---
Notified Asbestos Brake Lining Finisher Kaitlynn of patient's c/o of hunger pains, Kaitlynn reported that Kourtney will be checking on patient's diet status today.
[2019-08-19] MEDS: Ciprofloxacin 0.3% 2.5ml Bottle 1 DRP RIGHT EYE ×4 (10:15→22:36)
[2019-08-19 13:20] VITALS: BP 143/79; PULSE 75
[2019-08-19 13:36] VITALS: BP 143/79; PULSE 75; RESP 16; TEMP 37; O2SAT 94
[2019-08-19] MEDS: Jevity 1.5. 1,000 ML Bottle 300 ML GT ×2 (17:53→22:42)
[2019-08-19 22:40] VITALS: BP 126/75; PULSE 100
[2019-08-20] MEDS: Acetaminophen 650 MG/20 ML UDC NG ×4 (04:09→22:31)
[2019-08-20] MEDS: Menthol/Lanolin/Calamine/Znox 113 GM Tube 1 APPLIC TOPICAL ×3 (06:08→22:27)
[2019-08-20] MEDS: Ciprofloxacin 0.3% 2.5ml Bottle 1 DRP RIGHT EYE ×5 (06:09→22:29)
[2019-08-20] MEDS: Jevity 1.5. 1,000 ML Bottle 300 ML GT (06:11)
[2019-08-20] MEDS: NYSTATIN 500,000 UNIT/5 ML UDC 500000 UNIT PO ×4 (06:12→22:31)
[2019-08-20] MEDS: levETIRAcetam Oral Solution 500 MG/5 ML GT ×2 (06:12→17:12)
[2019-08-20] MEDS: Enoxaparin 30 MG/0.3 ML Syringe SC (06:12)
[2019-08-20 06:13] VITALS: BP 124/60; PULSE 87
[2019-08-20] MEDS: Lisinopril 20 MG Tablet NG ×2 (06:13→17:12)
[2019-08-20] MEDS: Metoprolol Tartrate 100 MG Tablet NG ×3 (06:13→22:30)
[2019-08-20] MEDS: Nystatin Powder 15gm Bottle 1 APPLIC TOPICAL ×2 (06:13→22:30)
[2019-08-20] MEDS: Levothyroxine 50 MCG Tablet NG (06:13)
--- NOTE | 2019-08-20 09:10 | CASEMGMT ---
Social Work Insurance issued LCD 08/21, DC 08/22. Spoke with patient's daughter to discuss DC plans. Explained appeal rights, financial liability - dtr considering appeal. Spoke with dtr about plans for pt to DC to [facility] on hospice. Discussed pt's participation in therapy and pts overall medical condition. Dtr confused and emotional about the right decision to make for pt. Offered emotional and verbal support. Provided empathy to making decision. recounted pt's journey during stay with dtr and pt's decision for wanting hospice care. Dtr will notify SW when decision is made and appreciative of supportive listening. Will continue to follow. Aletha Ma, YUNG ESQUIVELW
--- NOTE | 2019-08-20 09:52 | CASEMGMT ---
Social Work Dtr filed an appeal. Sergio contacted SW - appeal . Notified [facility]. Will continue to follow. Aletha Ma, CERTIFIED MEDICATION AIDE CANCELLATION CLERK
--- NOTE | 2019-08-20 09:55 | CASEMGMT ---
Social Work Dtr filed an appeal. Sergio contacted SW - appeal . Notified [facility]. Will continue to follow. Aletha Ma, NURSE EMERGENCY ROOM TOWER ERECTOR HELPER
--- NOTE | 2019-08-20 10:04 | NURSING ---
housekeeper/laundry assistant notified of pt emesis after bolus last evening and increased loose stools. Shanti recommended pt go back to continuous feeds as previous orders.
[2019-08-20] MEDS: Jevity 1.5 1,000 ML 45 ML GT (10:33)
[2019-08-20 13:49] VITALS: BP 129/67; PULSE 94; RESP 18; TEMP 36.9; O2SAT 95
[2019-08-20 14:41] VITALS: PULSE 94
--- NOTE | 2019-08-20 18:16 | DCINST_ITS ---
- Discharge Diagnoses Current Active Problems: Current Active and Chronic Problems (Last Reviewed 06/21/19 @ 14:[address] Gideon Chatman MD) Debility (Acute) Fall (Acute) Subdural hemorrhage (Acute) Encephalopathy (Acute) Dysphagia (Acute) Left hemiparesis (Acute) Receptive aphasia (Chronic) Seizure disorder (Chronic) Atrial fibrillation (Chronic) Hypertension (Chronic) Chronic obstructive pulmonary disease (Chronic) Rheumatoid arthritis (Chronic) Bowel incontinence (Acute) Bladder incontinence (Acute) Anemia (Chronic) Atrophic vaginitis (Chronic) Overactive bladder (Chronic) You will use the following diet at home:: Other - NPO. Weight Bearing Status: Weight bearing as tolerated Call your doctor if you observe: Fever of 101 or Higher, Inability to urinate, Inability to have a bowel movement, Shortness of breath, Chest pain, Uncontrolled pain Allergies/Adverse Reactions: Allergies naproxen Adverse Reaction (Severe, Verified 06/21/19 13:53) GI BLeed ezetimibe [From Vytorin] Adverse Reaction (Intermediate, Verified 06/21/19 13:53 ) mylagias simvastatin [From Vytorin] Adverse Reaction (Intermediate, Verified 06/21/19 13:53) mylagias celebrex Allergy (Uncoded 06/21/19 13:53) GI Bleed Medications to take at Discharge Levothyroxine Sodium 50 mcg PO DAILY 07/19/19 Lisinopril 20 mg PO BID 07/19/19 Docusate Sodium [Docu Liquid] 100 mg PO BID 08/01/19 Metoprolol Tartrate [Lopressor (beta hussein)] 100 mg PO Q8H 08/01/19 Quetiapine Fumarate [Seroquel] 12.5 mg PO Q8H PRN PRN 08/01/19 Acetaminophen Liquid [Tylenol Liquid] 650 mg NG Q6H udc 08/20/19 Atropine [Atropisol] 1 drp SL Q3H PRN PRN bottle 08/20/19 Ciprofloxacin 0.3% [Ciloxan] 1 drp RIGHT EYE Q4HWA #1 bottle 08/20/19 Menthol/Lanolin/Calamine/Znox [Calmoseptine Ointment] 1 applic TOPICAL TID tube 08/20/19 Mineral Oil/Petrolatum,White [Eucerin] 1 applic TOPICAL 0600,2200 jar 08/20/19 Nystatin Powder [Mycostatin Powder] 1 applic TOPICAL 0600,2200 bottle 08/20/19 levETIRAcetam oral solution [Keppra Solution] 500 mg GT BID udc 08/20/19 The following prescriptions were given: Ciprofloxacin 0.3% [Ciloxan] 1 drp RIGHT EYE Q4HWA #1 bottle Prescription Printed Primary Care Physician: Ugo Lauren MD [Primary Care Provider] - Please follow up with your Primary Care Physician in: As needed. Test Results: Test results from this visit will be discussed in further detail at your follow- up appointment, if applicable. Please Follow Up With: Cole Morrison (neuro surgeon) When: 1 week [phone] or [phone] Please Follow Up With: Bne Mcguire When: 6 weeks Proposed Discharge Date: 08/23/19
--- NOTE | 2019-08-20 18:18 | DS.PCM_ITS ---
Discharge Date and Diagnosis - Problem List Patient Problems: Active and Suspected Problems (Last Reviewed 06/21/19 @ 14:[address] Gideon Chatman MD) Debility (Acute) Fall (Acute) Subdural hemorrhage (Acute) Encephalopathy (Acute) Dysphagia (Acute) Left hemiparesis (Acute) Bowel incontinence (Acute) Bladder incontinence (Acute) Date of Admission: 08/01/19 Date of Discharge: 08/23/19 - Primary Discharge Diagnosis Active and Suspected Problems (Last Reviewed 06/21/19 @ 14:[address] Gideon Chatman MD) Debility (Acute) Fall (Acute) Subdural hemorrhage (Acute) Encephalopathy (Acute) Dysphagia (Acute) Left hemiparesis (Acute) Bowel incontinence (Acute) Bladder incontinence (Acute) - Secondary Discharge Diagnosis Chronic Problems (Last Reviewed 06/21/19 @ 14:[address] Gideon Chatman MD) Receptive aphasia (Chronic) Seizure disorder (Chronic) Atrial fibrillation (Chronic) Hypertension (Chronic) Chronic obstructive pulmonary disease (Chronic) Rheumatoid arthritis (Chronic) Anemia (Chronic) Atrophic vaginitis (Chronic) Overactive bladder (Chronic) Longstanding persistent atrial fibrillation (Chronic) Non-rheumatic tricuspid valve insufficiency (Chronic) Secondary pulmonary arterial hypertension (Chronic) Essential hypertension (Chronic) CVA (cerebral vascular accident) (Chronic 2008) Current use of residential anticoagulation (Chronic) Hypothyroidism (Chronic) Hospital Course and Treatment Imaging Results: 08/07/19 07:50 Diet: Nothing Per Oral Is pt able to select menu?: Yes Clinical Impression(s) from Imaging Studies Chest X-Ray 08/01/19 18:10 IMPRESSION: 1. Stable cardiac enlargement. No CHF. 2. Suboptimal inspiratory effort with bibasilar crowding. 3. Feeding tube tip is outside the field of view. Electronically Signed: Solis Garza MD at 18:41 EST , Service support , KUB X-Ray 08/07/19 08:35 IMPRESSION: 1. Feeding tube in the right upper quadrant likely in the second portion the duodenum. 2. No bowel obstruction. Electronically Signed: Jan Rutledge MD at 11:39 EDT Tel , Service support , Operations: None Procedures: None Summary of Care Provided: The patient is a 84 year old Female with below past medical history hospitalized for left subdural hemorrhage, underwent craniotomy with evacuation 07/20/2019, admitted to TCU with debility, here for rehabilitation, strengthening, prior to disposition determination. Discharge to [facility] with Hospice. Patient Problems: Active and Suspected Problems (Last Reviewed 06/21/19 @ 14:[address] Gideon Chatman MD) Debility (Acute) Fall (Acute) Subdural hemorrhage (Acute) Encephalopathy (Acute) Dysphagia (Acute) Left hemiparesis (Acute) Bowel incontinence (Acute) Bladder incontinence (Acute) - Physical Exam Vitals/I&O's: Vital Signs Temp Pulse Resp BP Pulse Ox 98.4 F 94 18 129/67 H 95 08/20/19 13:49 08/20/19 14:41 08/20/19 13:49 08/20/19 13:49 08/20/19 13:49 Oxygen Flow Rate (L/min) 3 Oxygen Delivery Method Room Air Weight: 89.811 kg Body Mass Index (BMI) 31.8 Intake and Output for Last 24 Hours 08/18/19 08/19/19 08/20/19 23:59 23:59 23:59 Intake Total 1700 / 1700 2029 / 2030 540 / 540 Balance 1700 / 1700 2029 / 2029 540 / 540 Current Medications Acetaminophen (Tylenol Liquid) 650 mg NG Q6H [facility] Last Admin: 08/20/19 14:41 Dose: 650 mg Documented by: Atropine Sulfate (Atropisol) 1 drop SL Q3H PRN PRN PRN Reason: secretions Last Admin: 08/15/19 22:02 Dose: 1 drop Documented by: Calamine/Phenol (Calmoseptine Ointment) 1 applic TOPICAL TID [facility]; Protocol Last Admin: 08/20/19 14:53 Dose: 1 applicatio Documented by: Ciprofloxacin HCl (Ciloxan) 1 drop RIGHT EYE Q4HWA [facility] Last Admin: 08/20/19 17:12 Dose: 1 drop Documented by: Docusate Sodium (Colace Syrup) 100 mg NG BID [facility] Last Admin: 08/20/19 13:07 Dose: Not Given Documented by: Enoxaparin Sodium (Lovenox) 30 mg SC DAILY@0600 [facility] Last Admin: 08/20/19 06:12 Dose: 30 mg Documented by: Hydralazine HCl (Apresoline Iv) 10 mg IV Q4H PRN PRN PRN Reason: SBP > 160 Last Admin: 08/04/19 05:05 Dose: 10 mg Documented by: Enteral Nutritional Formula (Jevity 1.5) 1,000 mls @ 45 mls/hr GT .[id number] [facility] Last Admin: 08/20/19 10:33 Dose: 45 mls/hr Documented by: Levetiracetam (Keppra Oral Solution) 500 mg GT BID [facility] Last Admin: 08/20/19 17:12 Dose: 500 mg Documented by: Levothyroxine Sodium (Synthroid) 50 mcg NG DAILY [facility] Last Admin: 08/20/19 06:13 Dose: 50 mcg Documented by: Lisinopril (Zestril) 20 mg NG BID [facility] Last Admin: 08/20/19 17:12 Dose: 20 mg Documented by: Metoprolol Tartrate (Lopressor (Beta Rosy)) 100 mg NG Q8 [facility] Last Admin: 08/20/19 14:41 Dose: 100 mg Documented by: Multi-Ingredient Cream (Eucerin) 1 applic TOPICAL 0600,2200 [facility]; Protocol Last Admin: 08/20/19 06:11 Dose: 1 applicatio Documented by: Nystatin (Mycostatin Powder) 1 applic TOPICAL 0600,2200 [facility]; Protocol Last Admin: 08/20/19 06:13 Dose: 1 applicatio Documented by: Nystatin (Nystatin) 500,000 unit PO 4X/DAY [facility] Stop: 08/23/19 17:01 Last Admin: 08/20/19 17:12 Dose: 500,000 unit Documented by: Quetiapine Fumarate (Seroquel) 12.5 mg NG Q8H PRN PRN PRN Reason: AGITATION Sodium Chloride () 10 - 20 ml IV PRN PRN PRN Reason: SALINE FLUSH Last Admin: 08/05/19 05:42 Dose: 20 ml Documented by: Discharge Diet: - - TF only. Weight Bearing Status: Weight bearing as tolerated Call your doctor if you observe: Fever of 101 or Higher, Inability to urinate, Inability to have a bowel movement, Shortness of breath, Chest pain, Uncontrolled pain Home Medications: Medications to take at Discharge Levothyroxine Sodium 50 mcg PO DAILY 07/19/19 Lisinopril 20 mg PO BID 07/19/19 Docusate Sodium [Docu Liquid] 100 mg PO BID 08/01/19 Metoprolol Tartrate [Lopressor (beta rosy)] 100 mg PO Q8H 08/01/19 Quetiapine Fumarate [Seroquel] 12.5 mg PO Q8H PRN PRN 08/01/19 Acetaminophen Liquid [Tylenol Liquid] 650 mg NG Q6H udc 08/20/19 Atropine [Atropisol] 1 drp SL Q3H PRN PRN bottle 08/20/19 Ciprofloxacin 0.3% [Ciloxan] 1 drp RIGHT EYE Q4HWA #1 bottle 08/20/19 Menthol/Lanolin/Calamine/Znox [Calmoseptine Ointment] 1 applic TOPICAL TID tube 08/20/19 Mineral Oil/Petrolatum,White [Eucerin] 1 applic TOPICAL 0600,2200 jar 08/20/19 Nystatin Powder [Mycostatin Powder] 1 applic TOPICAL 0600,2200 bottle 08/20/19 levETIRAcetam oral solution [Keppra Solution] 500 mg GT BID udc 08/20/19 Following Prescrptions Were Given to Patient: Ciprofloxacin 0.3% [Ciloxan] 1 drp RIGHT EYE Q4HWA #1 bottle Prescription Printed Primary Care Physician: Ugo Lauren MD [Primary Care Provider] - Please follow up with your Primary Care Physician in: As needed. Please Follow Up With: Cole Morrison (neuro surgeon) When: 1 week [phone] or [phone] Please Follow Up With: Ben Mcguire When: 6 weeks Disposition: Asstd Living/Non-Skill NH Minutes spent on discharge:: 30 Patient Condition:: Poor Medical Necessity - Tobacco Use Smoking Status: Never smoker Tobacco Use: Non-smoker Meaningful Use Info Meaningful Use Diagnoses (Choose all that apply): None applicable
--- NOTE | 2019-08-20 18:20 | PCM.TXEXTCAR ---
- Diet 08/07/19 07:50 Diet: Nothing Per Oral Is pt able to select menu?: Yes - Routine Orders/Code Status Suppository Type: Dulcolax 10mg Suppository Frequency: Daily PRN [facility] - No intubation. - Wound(s) LEFT HEAD Wound Type: Surgical Incision - Therapies Weight Bearing: Weight bearing as tolerated - Problem/Diagnosis (1) Debility Status: Acute Current Visit: Yes (2) Fall Status: Acute Current Visit: Yes (3) Subdural hemorrhage Status: Acute Current Visit: Yes (4) Encephalopathy Status: Acute Current Visit: Yes (5) Dysphagia Status: Acute Current Visit: Yes (6) Left hemiparesis Status: Acute Current Visit: Yes (7) Receptive aphasia Status: Chronic Current Visit: Yes (8) Seizure disorder Status: Chronic Current Visit: Yes (9) Atrial fibrillation Status: Chronic Current Visit: Yes (10) Hypertension Status: Chronic Current Visit: Yes (11) Chronic obstructive pulmonary disease Status: Chronic Current Visit: Yes (12) Rheumatoid arthritis Status: Chronic Current Visit: Yes (13) Bowel incontinence Status: Acute Current Visit: Yes (14) Bladder incontinence Status: Acute Current Visit: Yes (15) Anemia Status: Chronic Current Visit: Yes (16) Atrophic vaginitis Status: Chronic Current Visit: Yes (17) Overactive bladder Status: Chronic Current Visit: Yes (18) CVA (cerebral vascular accident) Status: Chronic Current Visit: No (19) Hypothyroidism Status: Chronic Current Visit: No - Allergies/Procedures Done in Hospital Allergies/Adverse Reactions: Allergies naproxen Adverse Reaction (Severe, Verified 06/21/19 13:53) GI BLeed ezetimibe [From Vytorin] Adverse Reaction (Intermediate, Verified 06/21/19 13:53) mylagias simvastatin [From Vytorin] Adverse Reaction (Intermediate, Verified 06/21/19 13:53) mylagias celebrex Allergy (Uncoded 06/21/19 13:53) GI Bleed - Type of Care/Length of Stay Estimated LOS: More Than 30 Days Type of Care Needed: Intermediate Rehab Potential: Poor Prognosis: Poor - Additional Orders/Day of Discharge Day of Discharge: 08/23/19 - Dietary and Speech Recommendations Dietitian Recommendations/Changes: Recommend change tube feeds from continuous to bolus feeds. Will adjust to 4 bolus feeds/day of Jevity 1.5-300mL per bolus. 175mL H2O flush every 4 hours to provide 1800 calories, 76.56 g protein, and 1962mL total fluid per day. Discussed w/ nursing staff- bolus times are 0800, 1200, 1800, and 2200. - Follow Up Care Primary Care Physician: Ugo Lauren MD [Primary Care Provider] - Please follow up with your Primary Care Physician in: As needed. Please Follow Up With: Cole Morrison (neuro surgeon) When: 1 week [phone] or [phone] Please Follow Up With: Ben Mcguire When: 6 weeks
[2019-08-20 18:41] LABS: Bedside Glucose 119 mg/dL (70-110)
[2019-08-20 18:44] VITALS: BP 156/92; PULSE 97; RESP 20; TEMP 36.8; O2SAT 92
--- NOTE | 2019-08-20 18:46 | NURSING ---
R' C/O OF NOT FEELING WELL. C/O NAUSEA. VS TAKEN, BLOOD SUGAR 119. BS PRESENT X4. M. LONG NOTIFIED DR. FAUSTIN. ORDER FOR BRENDA, NHUNG. JEVITY STOPPED AT THIS TIME AND FLUSHED. WILL REPORT TO NEXT SHIFT.
[2019-08-20] MEDS: Ondansetron ODT 4 MG Tablet NG (18:54)
--- NOTE | 2019-08-20 19:00 | NURSING ---
Addendum entered by Melva Blanco 08/21/19 09:04: Urine was tested d/t strong odor, dark color in attends as well as pt c/o nausea. Original Note: ZOFRAN GIVEN AT THIS TIME DISSOLVED IN WATER. FLUSHED WITH 60CC AFTER. ALSO, [facility] WAS ORDERED D/T FOUL SMELLING URINE.
--- NOTE | 2019-08-20 21:00 | NURSING ---
Pt started back on [employer] 1.5 running at 35ml/hr will continue to monitor during this shift.
[2019-08-20 22:30] VITALS: BP 111/74; PULSE 104
[2019-08-21] MEDS: Acetaminophen 650 MG/20 ML UDC NG ×4 (04:08→20:18)
[2019-08-21] MEDS: Menthol/Lanolin/Calamine/Znox 113 GM Tube 1 APPLIC TOPICAL ×3 (06:55→20:33)
[2019-08-21] MEDS: Nystatin Powder 15gm Bottle 1 APPLIC TOPICAL ×2 (06:56→20:34)
[2019-08-21] MEDS: Enoxaparin 30 MG/0.3 ML Syringe SC (06:56)
[2019-08-21] MEDS: Lisinopril 20 MG Tablet NG ×2 (06:57→17:14)
[2019-08-21] MEDS: NYSTATIN 500,000 UNIT/5 ML UDC 500000 UNIT PO ×4 (06:57→20:19)
[2019-08-21] MEDS: levETIRAcetam Oral Solution 500 MG/5 ML GT ×2 (06:57→17:15)
[2019-08-21] MEDS: Levothyroxine 50 MCG Tablet NG (06:57)
[2019-08-21 06:58] VITALS: BP 116/91; PULSE 93
[2019-08-21] MEDS: Metoprolol Tartrate 100 MG Tablet NG ×3 (06:58→20:19)
[2019-08-21] MEDS: Ciprofloxacin 0.3% 2.5ml Bottle 1 DRP RIGHT EYE ×5 (07:01→20:31)
[2019-08-21 07:27] LABS: Mucous, Urine 0 SEEN /hpf (<or=2+)
[2019-08-21 08:22] LABS: Color, Urine Yellow (Yellow); Glucose, Dipstick Normal (Normal); Ketone-Dipstick 5 mg/dl (Negative); Leukocyte Esterase-Dipstick 500 /ul (Negative); Nitrite-Dipstick Negative (Negative); Occult Blood-Urine 150 /ul (Negative); Protein-Dipstick 30 mg/dl (Negative); Urine Bilirubin Dipstick Negative (Negative); Urine Clarity Sl. Cloudy (Clear); Urine Urobilinogen 1 mg/dl (Normal)
[2019-08-21 08:34] LABS: White Blood Cells 50-100 SEEN /hpf (0-5)
[2019-08-21 08:35] LABS: Bacteria 3+ /hpf (None Seen); Red Blood Cells-Urine 5-10 SEEN /hpf (0-5); Squamous Epithelial Cells - UA 0-5 SEEN /hpf (5-10)
[2019-08-21 08:46] VITALS: PULSE 59; RESP 16; O2SAT 93
--- NOTE | 2019-08-21 09:03 | NURSING ---
Dr Vieira updated on UA results, new order for ATB ceftin x7 days via NG tube.
[2019-08-21] MEDS: Jevity 1.5 1,000 ML 45 ML GT (10:12)
[2019-08-21] MEDS: CEFUROXIME AXETIL 250 MG TABLET 500 MG NG ×2 (10:13→17:14)
[2019-08-21 13:15] VITALS: BP 120/61; PULSE 88
[2019-08-21 13:17] VITALS: BP 120/61; PULSE 88; RESP 16; O2SAT 93
[2019-08-21 14:20] VITALS: TEMP 36.3
--- NOTE | 2019-08-21 15:55 | CASEMGMT ---
Social Work Sergio notified SW pt lost appeal. Spoke with pt's dtr whom is aware. Informed dtr of reconsideration appeal rights and financial liability or for pt to DC to [facility] with [facility] as planned 08/22. Dtr expressed stress with the decision as [facility] stated they are not allowing visitors and for that reason, dtr would like for pt to remain in TCU as long as possible. Contacted [facility] to clarify visitor policy - whom is verifying and will contact . Notified [facility] of pt DC date. Will continue to follow. Aletha Ma, YUNG ESQUIVELW
--- NOTE | 2019-08-21 16:06 | CASEMGMT ---
Social Work Reviewed and agreed with social work internal communications intern documentation on this date. Aletha Ma, BUTTON SEWING MACHINE OPERATOR WIRELESS SALES MANAGER
[2019-08-21] MEDS: Docusate Sodium 100 MG/10 ML UDC NG (17:13)
[2019-08-21 20:19] VITALS: BP 121/59; PULSE 97
[2019-08-22] MEDS: Menthol/Lanolin/Calamine/Znox 113 GM Tube 1 APPLIC TOPICAL ×3 (05:18→21:33)
[2019-08-22] MEDS: Nystatin Powder 15gm Bottle 1 APPLIC TOPICAL ×2 (05:19→21:41)
[2019-08-22] MEDS: Docusate Sodium 100 MG/10 ML UDC NG ×2 (05:20→16:59)
[2019-08-22] MEDS: levETIRAcetam Oral Solution 500 MG/5 ML GT ×2 (05:20→16:59)
[2019-08-22] MEDS: Enoxaparin 30 MG/0.3 ML Syringe SC (05:20)
[2019-08-22] MEDS: Acetaminophen 650 MG/20 ML UDC NG ×4 (05:20→21:33)
[2019-08-22 05:22] VITALS: BP 138/81; PULSE 91
[2019-08-22] MEDS: Metoprolol Tartrate 100 MG Tablet NG ×3 (05:22→21:33)
[2019-08-22] MEDS: CEFUROXIME AXETIL 250 MG TABLET 500 MG NG ×2 (05:22→16:59)
[2019-08-22] MEDS: NYSTATIN 500,000 UNIT/5 ML UDC 500000 UNIT PO ×3 (05:23→16:57)
[2019-08-22] MEDS: Levothyroxine 50 MCG Tablet NG (05:23)
[2019-08-22] MEDS: Lisinopril 20 MG Tablet NG ×2 (05:24→17:00)
[2019-08-22] MEDS: Ciprofloxacin 0.3% 2.5ml Bottle 1 DRP RIGHT EYE ×5 (05:33→21:31)
[2019-08-22] MEDS: Jevity 1.5 1,000 ML 45 ML GT (10:09)
--- NOTE | 2019-08-22 10:54 | CASEMGMT ---
Social Work Spoke with patient's dtr. Dtr emotionally struggling with making decisions about her mom and does not like [facility] visitor restriction policy. They are only allowing visitors when the pt is imminent. Provided emotional and verbal support. Offered to contact other SNFs to determine their visitation-hospice policy. Dtr appreciative. Contacted several SNFs. [facility] is allowing one visitor for hospice patients regardless of severity. Dtr would like pt to transfer to [facility]. They had previously accepted pt. Faxed updated clinicals. awaiting outcome. Will continue to follow. YUNG NogueiraW
[2019-08-22 13:18] VITALS: BP 130/68; PULSE 88
--- NOTE | 2019-08-22 13:37 | CASEMGMT ---
Social Work [facility] can accept the pt. Notified the dtr and [facility]. PASRR completed. Cot transportation scheduled with [facility] at 2 pm. Plan: DC to [facility] 08/22 with [facility] via [facility] at 2 pm. Aletha Ma, WOOD TREATING INSPECTOR LITIGATION ASSOCIATE
--- NOTE | 2019-08-22 14:13 | NURSING ---
pt received complete bed bath including having her hair washed and lotion applied. Peg cream and nystatin powder applied to maintain skin integrity. Dressing to secure NG tube removed from left cheek d/t dressing being loose, skin under old dressing red in color but blanchable. Transparent dressing applied to right cheek at this time to secure NG tube. Pt tolerated well, denies any pain at this time. Touch pad call light in reach, high-low bed in lowest position, seizure pads and floor mats in place
[2019-08-22 14:19] VITALS: BP 130/68; PULSE 88; RESP 18; TEMP 37.1; O2SAT 95
[2019-08-22 21:30] VITALS: PULSE 72; O2SAT 93
[2019-08-22 21:33] VITALS: BP 140/78; PULSE 72
[2019-08-23] MEDS: Docusate Sodium 100 MG/10 ML UDC NG (05:11)
[2019-08-23] MEDS: Enoxaparin 30 MG/0.3 ML Syringe SC (05:11)
[2019-08-23] MEDS: Acetaminophen 650 MG/20 ML UDC NG ×2 (05:11→10:08)
[2019-08-23] MEDS: levETIRAcetam Oral Solution 500 MG/5 ML GT (05:11)
[2019-08-23] MEDS: Lisinopril 20 MG Tablet NG (05:12)
[2019-08-23] MEDS: Menthol/Lanolin/Calamine/Znox 113 GM Tube 1 APPLIC TOPICAL ×2 (05:12→13:06)
[2019-08-23] MEDS: Ciprofloxacin 0.3% 2.5ml Bottle 1 DRP RIGHT EYE ×3 (05:12→13:05)
[2019-08-23] MEDS: Levothyroxine 50 MCG Tablet NG (05:12)
[2019-08-23] MEDS: CEFUROXIME AXETIL 250 MG TABLET 500 MG NG (05:12)
[2019-08-23] MEDS: Nystatin Powder 15gm Bottle 1 APPLIC TOPICAL (05:13)
[2019-08-23 05:15] VITALS: BP 115/88; PULSE 102
[2019-08-23] MEDS: Metoprolol Tartrate 100 MG Tablet NG ×2 (05:15→13:05)
[2019-08-23 05:27] LABS: Absolute Lymphocyte Count 0.98 X10^3/uL (0.83-4.51); Absolute Neutrophil Count 3.5 X10^3/uL (2.0-7.7); Basophil# 0.02 X10^3/uL; Basophil% 0.4 % (0-1); Eosinophil# 0.25 X10^3/uL; Eosinophils% 4.8 % (0-5); Hematocrit 35.5 % (37-47); Lymphocyte # 0.98 X10^3/ul (4.0); Mean Corpuscular Hgb 30.6 pg (27.0-32.0); Mean Corpuscular Volume 98.9 fL (81-99); Mean Platelet Vol. 11.8 fl (6.2-12.0); Monocyte# 0.41 X10^3/uL; Monocyte% 7.9 % (0-10); NRBC Flagged by Analyzer 0 % (0-5); Neutrophil # 3.47 X10^3/uL (2.7-7.7); Neutrophil % 67.3 % (47-70); Platelet Count 221 K/mm3 (150-450); RBC Distribution Width SD 58.2 fl (35.1-43.9); Red Blood Count 3.59 M/mm3 (4.2-5.4); White Blood Count 5.2 K/mm3 (4.4-11.0)
[2019-08-23 05:42] LABS: Anion Gap 8 (5-15); BUN 30 mg/dL (7-18); Calcium,Total 10.1 mg/dL (8.5-10.1); Chloride 103 mmol/L (98-107); Creatinine, Serum 0.72 mg/dL (0.55-1.02); EST Glomerular Filtration Rate 83 mL/min (>60); Est Glom Filt Rate - Afr Amer 100 mL/min (>60); Estimated Creatinine Clearance 41.45 ml/min; Glucose 116 mg/dL (74-106); Sodium Level 141 mmol/L (136-145)
[2019-08-23 10:45] VITALS: BP 130/68; PULSE 72; RESP 14; TEMP 36.4; O2SAT 92
--- NOTE | 2019-08-23 11:25 | NURSING ---
report called to nurse Charlton at [facility] at this time.
[2019-08-23] MEDS: NYSTATIN 500,000 UNIT/5 ML UDC 500000 UNIT PO (11:51)
[2019-08-23 13:05] VITALS: PULSE 80
--- NOTE | 2019-08-23 14:55 | CASEMGMT ---
Social Work Reviewed and agreed with social work documentation on this date. Aletha Ma, INTERPRETIVE PROGRAM COORDINATOR MINESWEEPING OFFICER
--- NOTE | 2019-08-26 14:17 | CASEMGMT ---
Social Work Reviewed and agreed with social work international flight attendant documentation on this date. Aletha Ma, CITY COMPTROLLER GROCERY SACKER
== END 2019-08-23 14:15 | disposition hospice, inpatient (51) | DRG 949 ==
PROVIDERS: Admitting Provider Family Medicine Geriatric Medicine; PCP Internal Medicine; Referring Provider Family Medicine Geriatric Medicine; Visit Provider Family Medicine Geriatric Medicine
DX: S06.5X9D Traumatic subdural hemorrhage with loss of consciousness of unspecified duration, subsequent encounter (principal); I48.11 Longstanding persistent atrial fibrillation; G81.94 Hemiplegia, unspecified affecting left nondominant side; R47.01 Aphasia; W00.0XXD Fall on same level due to ice and snow, subsequent encounter; E03.9 Hypothyroidism, unspecified; J44.9 Chronic obstructive pulmonary disease, unspecified; M06.9 Rheumatoid arthritis, unspecified; I10 Essential (primary) hypertension; I27.21 Secondary pulmonary arterial hypertension; N32.81 Overactive bladder; M19.90 Unspecified osteoarthritis, unspecified site; E78.5 Hyperlipidemia, unspecified; K21.9 Gastro-esophageal reflux disease without esophagitis; G40.909 Epilepsy, unspecified, not intractable, without status epilepticus; E55.9 Vitamin D deficiency, unspecified; R00.0 Tachycardia, unspecified; R55 Syncope and collapse; R94.31 Abnormal electrocardiogram [ECG] [EKG]
CPT/HCPCS: 36415; 71046; 74018; 80048; 81001; 82962; 85025; 87040; 87077; 87086; 87088; 87186; 87633; 92507; 92526; 92610; 93005; 93306; 97110; 97112; 97162; 97167; 97530; 97535; 97802; 97803; J7030; A4216; J2405

== ENCOUNTER → 2019-08-02 09:40 | Outpatient (CLI) | payer MEDICARE, SELFPAY ==
[2019-08-01 17:18] VITALS: BMI 30.6
--- NOTE | 2019-08-02 09:42 | CT_ITS ---
STUDY: CT BRAIN WITHOUT CONTRAST REASON FOR EXAM: Female, 84 years old. MS CHANGE, FELL ON ICE 07/19, LEFT CRANIOTOMY 07/20, TRANSFERRED FROM OUTSIDE FACILITY-BECAME UNRESPONSIVE 07/31, HX SEIZURE RADIATION DOSAGE (If Supplied By Facility): CTDIvol = ( 44.99 ) mGy, DLP = ( 812.98 ) mGycm TECHNIQUE: Transaxial CT imaging of the brain was performed without administration of intravenous contrast material. Individualized dose optimization techniques were used for this CT. COMPARISON: CT brain July 19, 2019. FINDINGS: The patient has undergone left frontoparietal craniotomy since previous exam. A 12 mm diameter cylindrical defect at the anterior margin of the craniotomy contains a few gas bubbles that extend into the superolateral right frontal extra-axial space. Numerous metal skin gwyn are seen along mild swelling of the scalp at the superior margin of the craniotomy site. The left extra-axial collection is notably decreased in size and overall density. There may be a subtle hyperdense component along the periphery of the collection deep to the craniotomy site. There are stable findings of old infarct in the right middle cerebral artery distribution. Rounded area of decreased density in the high left frontal white matter is consistent with chronic microvascular ischemic change. There is mild cerebral atrophy with widening of the extra-axial spaces and ventricular dilatation. The mass effect in the left hemisphere is notably improved, and there is approximate 4-5 mm residual subfalcine [id number] shift of the midline. Normal left basal ganglia and bilateral thalami. Normal brainstem. There is borderline to mild cerebellar atrophy. There is mild mucoperiosteal thickening at the posterior left sphenoid sinus. There is a small to moderate accumulation of cerumen in the right external auditory canal. CT/Brain/Head without Contrast IMPRESSION: 1. The patient has undergone left frontoparietal craniotomy since previous exam. The left subdural collection is notably decreased in size, and there is significantly less mass effect in the left hemisphere. A 4-5 mm residual shae-[id number] subfalcine shift of the midline is present. 2. Findings of an old right middle cerebral artery infarct again seen. There is chronic microvascular ischemic change in the high anterior left frontal lobe. Electronically Signed: Solis Garza MD at 11:08 EST , Service support ,
== END ==
PROVIDERS: PCP Internal Medicine; Referring Provider Family Medicine Geriatric Medicine; Visit Provider Family Medicine Geriatric Medicine
DX: R41.82 Altered mental status, unspecified (principal)
CPT/HCPCS: 70450